=== PATIENT | male | born 1940 | race Caucasian/White ===

== ENCOUNTER → 2018-01-10 14:06 | Outpatient (CLI) | payer OTHER, SELFPAY ==
[2018-01-10 15:50] LABS: Anion Gap 9 (5-15); BUN 18 mg/dL (7-18); Calcium,Total 9.5 mg/dL (8.5-10.1); Chloride 101 mmol/L (98-107); Cholesterol 262 mg/dL (200); Creatinine, Serum 1.06 mg/dL (0.70-1.30); EST Glomerular Filtration Rate 72 mL/min (>60); Est Glom Filt Rate - Afr Amer 87 mL/min (>60); Glucose 111 mg/dL (74-106); High Density Lipoprotein 39 mg/dL; Potassium 4.2 mmol/L (3.5-5.1); Sodium Level 135 mmol/L (136-145); Triglycerides 309 mg/dL; Very Low Density Lipoprotein 62 mg/dL (5-40)
== END ==
PROVIDERS: Family Provider Family Medicine; PCP Family Medicine; Visit Provider Family Medicine
DX: I10 Essential (primary) hypertension (principal)
CPT/HCPCS: 36415; 80048; 80061

== ENCOUNTER 2021-05-10 08:54 | Inpatient (IN) | payer MEDICARE, SELFPAY ==
[2021-05-10 08:55] VITALS: BP 172/86; PULSE 84; RESP 18; TEMP 36.3; O2SAT 99; BMI 25.9
--- NOTE | 2021-05-10 09:58 | RAD_ITS ---
STUDY: X-RAY - PELVIS AND LEFT HIP REASON FOR EXAM: Male, 80 years old. Injury/Pain TECHNIQUE: 3 views of the pelvis and hip. COMPARISON: None. FINDINGS: There is a non-specific bowel gas pattern. Normal visualized soft tissue structures. Normal bilateral iliac wings, sacroiliac joints and visualized sacrum. Normal bilateral superior and inferior pubic rami. Normal pubic symphysis. Normal bilateral ischial tuberosities. Acute impacted fracture of the transcervical femoral neck. Normal acetabulum. Normal hip joint. RAD/HIP, UNI W/ Pelvis 2-3 Views IMPRESSION: Acute impacted fracture the transcervical femoral neck. Electronically Signed: Kevin Flood MD at 10:46 EST ,
[2021-05-10] MEDS: Morphine 4 MG/ML Syringe IV (10:14)
--- NOTE | 2021-05-10 10:29 | RAD_ITS ---
STUDY: X-RAY CHEST REASON FOR EXAM: Male, 80 years old. surgery TECHNIQUE: Single AP portable view of the chest. COMPARISON: None. FINDINGS: The lungs are clear and expanded. Slightly elevated right hemidiaphragm. Normal size heart. Normal mediastinum and asim. Normal visualized pulmonary arteries. Normal visualized aortic arch and descending thoracic aorta. Normal visualized thoracic spine. Normal visualized ribs, clavicles, and shoulders. There is no demonstrated abnormality of the visualized soft tissue structures of the upper abdomen. RAD/Chest 1 View IMPRESSION: Normal x-ray examination of the chest. Electronically Signed: Kevin Flood MD at 10:52 EST ,
--- NOTE | 2021-05-10 10:33 | EX.ED.GENINJ ---
HPI History of Present Illness Chief Complaint: Fall Informant: patient and spouse/S.O. Narrative Narrative: Patient is an 80-year-old male presenting with left hip pain. Patient slipped on the ice yesterday yesterday. Is not exactly sure how he landed but feels that he has had pain in his groin since. He was only able to get up with assistance from two other people. He has had a hard time getting around the house since his been using crutches. His company did not not hit his head and did not lose consciousness. Is not on any blood thinners. wanted to bring him in yesterday but patient refused. Patient took two ibuprofen prior to arrival. No other complaints at this time. Patient does have a history of a large left inguinal hernia but denies any change there. Never had surgical repair. [facility] Medical History Hernia HTN (hypertension) Home Medications NK 05/10/21 [History Last Taken Unknown] Allergy/AdvReac Type Severity Reaction Status Date / Time No Known Allergies Allergy Unverified 05/10/21 08:55 Family History Father Myocardial infarction Social History Smoking Status: Never smoker alcohol intake: current alcohol intake frequency: a few times a week Alcohol type: beer ROS ROS ED Constitutional Constitutional ED: Denies chills or fever(s) Eyes Eyes: Denies change in vision ENT ENT ED: Denies sore throat Cardiovascular Cardiovascular: Denies chest pain Respiratory/Chest Respiratory/Chest: Denies cough or dyspnea Gastrointestinal Gastrointestinal: Denies abdominal pain, nausea or vomiting Genitourinary Genitourinary ED: Denies dysuria or hematuria Musculoskeletal Musculoskeletal: Reports other Details: left hip pain Integumentary Denies abscess or rash Neurologic Neurologic: Denies headache(s), paresthesias or weakness Psychiatric Psychiatric: Denies depression EXAM Physical Exam Const Vital Signs: 05/10/21 08:55 05/10/21 09:04 05/10/21 10:56 Temperature 97.3 F L 98.4 F Temperature Source Temporal Oral Pulse Rate 84 75 Respiratory Rate 18 16 Respiratory Effort Normal Respiratory Depth Normal Respiratory Pattern Normal Blood Pressure 172/86 H 171/94 H Blood Pressure Mean 114 119 Pulse Ox 99 97 Oxygen Delivery Method Room Air Room Air Positive well nourished and well developed General Appearance ED: well developed HEENT atraumatic; Negative for trauma or tenderness Eyes PERRL and EOMs intact bilaterally Neck full ROM General: Negative for tenderness Chest Wall inspection of chest normal Resp normal respiratory effort and clear to auscultation bilaterally Cardio regular rhythm and no murmurs Rate: regular rate GI normal to inspection, nondistended, normoactive bowel sounds Narrative: Large, soft left inguinal hernia. No tenderness. No abnormal warmth or erythema. Extremity Extremity Narrative: Tenderness of the left groin. Left lower extremity shortened and externally rotated. Pain with range of motion of the left hip. Pelvis is stable. General Extremety ED: Yes tenderness Neuro oriented x3, CN's II-XII intact bilaterally, moves all extremities and no focal motor deficits Sensorium / Orientation: alert Psych mental status grossly normal Skin no rashes or lesions noted and no wounds MDM MDM MDM Narrative Medical decision making narrative: Patient evaluated for left hip/groin pain. He had a fall yesterday. Did not hit his head. Is not on any blood thinners. Is found to have a left hip fracture. Will be admitted to medicine service for surgical management. Case discussed with Dr. Braydon Herr. Is given morphine for pain control in the ER. Patient admitted to hospital service. EKG interpreted by emergency medicine physician Normal sinus rhythm at a rate of 75 Left axis Normal intervals Normal ST segments Telemetry interpreted by emergency medicine physician Normal sinus rhythm with no ectopy Lab Data Labs: Laboratory Results - last 24 hr 05/10/21 05/10/21 05/10/21 10:55 10:55 10:55 WBC 11.2 H RBC 5.08 Hgb 15.1 Hct 44.6 MCV 87.8 MCH 29.7 MCHC 33.9 RDW Std Deviation 43.6 RDW Coeff of Ana 13.5 Plt Count 192 MPV 10.3 Immature Gran % (Auto) 0.600 Neut % (Auto) 80.9 H Lymph % (Auto) 8.5 L [place] % (Auto) 9.4 Eos % (Auto) 0.4 Baso % (Auto) 0.2 Absolute Neuts (auto) 9.1 H Absolute Lymphs (auto) 0.95 Nucleated RBC % 0 PT 14.2 INR 1.2 Sodium 139 Potassium 4.1 Chloride 107 Carbon Dioxide 25.0 Anion Gap 7 BUN 18 Creatinine 0.86 Estim Creat Clear Calc 75.19 Est GFR (MDRD) Af Amer 110 Est GFR (MDRD) Non-Af 91 BUN/Creatinine Ratio 21.0 H Glucose 126 H Calcium 9.0 Blood Type Antibody Screen 05/10/21 10:55 WBC RBC Hgb Hct MCV MCH MCHC RDW Std Deviation RDW Coeff of Ana Plt Count MPV Immature Gran % (Auto) Neut % (Auto) Lymph % (Auto) [place] % (Auto) Eos % (Auto) Baso % (Auto) Absolute Neuts (auto) Absolute Lymphs (auto) Nucleated RBC % PT INR Sodium Potassium Chloride Carbon Dioxide Anion Gap BUN Creatinine Estim Creat Clear Calc Est GFR (MDRD) Af Amer Est GFR (MDRD) Non-Af BUN/Creatinine Ratio Glucose Calcium Blood Type B POSITIVE Antibody Screen NEGATIVE Radiography Diagnostic Testing: Clinical Impression(s) from Imaging Studies Hip/Pelvis X-Ray 05/10/21 09:58 IMPRESSION: Acute impacted fracture the transcervical femoral neck. Electronically Signed: Kevin Flood MD at 10:46 EST Reading Location ID and State: [id number] / [employer] Tel , Service support , Chest X-Ray 05/10/21 10:29 IMPRESSION: Normal x-ray examination of the chest. Electronically Signed: Kevin Flood MD at 10:52 EST , Discharge Plan Dx/Rx/DC Orders Clinical Impression: Femoral neck fracture Disposition Disposition: Acute Care Hospital [facility] Discharge Date/Time: 05/10/21 11:30
--- NOTE | 2021-05-10 10:49 | EKG12_ITS ---
Test Reason : PRE-OP Blood Pressure : / mmHG Vent. Rate : 075 BPM Atrial Rate : 075 BPM P-R Int : 132 ms QRS Dur : 090 ms QT Int : 398 ms P-R-T Axes : 038 -56 042 degrees QTc Int : 444 ms Normal sinus rhythm Left axis deviation Low voltage QRS (Limb Leads) Poor R wave progression Abnormal ECG Confirmed by RUBY PEREZ, TANNA ([id number]), restaurant expeditor SHAMIKA TOMLIN ([id number]) on 05/13/2021 12:53:02 PM Referred By: [place] Confirmed By:TANNA BELTRAN MD
[2021-05-10 10:56] VITALS: BP 171/94; PULSE 75; RESP 16; TEMP 36.9; O2SAT 97
--- NOTE | 2021-05-10 11:09 | PCM.HP.STD ---
HPI - General General Date of Admission: 05/10/21 HPI Narrative TANNA RODRIGUEZ, is a 80 M who presents with left hip pain. Patient slipped on ice yesterday and landed on his left hip. Patient having pain. Presented to the emergency room and was found to have an acute impacted fracture of the left transcervical femoral neck. Emergency room reached out to Dr. Herr, orthopedics, left message as he is currently in surgery. [facility] Medical History Hernia HTN (hypertension) Home Medications NK 05/10/21 [History Last Taken Unknown] Allergy/AdvReac Type Severity Reaction Status Date / Time No Known Allergies Allergy Unverified 05/10/21 08:55 Family History Father Myocardial infarction Social History Smoking Status: Never smoker alcohol intake: current alcohol intake frequency: a few times a week Alcohol type: beer ROS ROS Narrative All review of systems were negative except as mentioned above in the history of present illness and the other review of systems. Vital Signs Vital Signs Vital Signs: 05/10/21 08:55 05/10/21 09:04 05/10/21 10:56 Temperature 36.3 C L 36.9 C Temperature Source Temporal Oral Pulse Rate 84 75 Respiratory Rate 18 16 Respiratory Effort Normal Respiratory Depth Normal Respiratory Pattern Normal Blood Pressure 172/86 H 171/94 H Blood Pressure Mean 114 119 Pulse Ox 99 97 Oxygen Delivery Method Room Air Room Air Weight Weight: 87 kg Body Mass Index (BMI) 25.9 Physical Exam Const alert General Appearance: cooperative HEENT normocephalic and head/scalp atraumatic Neck no lymphadenopathy Resp normal respiratory effort, no retractions, no use of accessory muscles and clear to auscultation bilaterally Cardio regular rate, regular rhythm, S1 normal heart sound and S2 normal heart sound GI normal to inspection, nondistended, normoactive bowel sounds, soft to palpation, non-tender and non-distended GI Narrative: Left inguinal hernia Extremity full ROM Extremity Narrative: Shortened left lower extremity compared to the right. Neuro Neuro Narrative: Moves all extremities spontaneously Sensorium / Orientation: awake and alert Psych affect normal Results Lab / Micro Data Result Diagrams: 05/10/21 10:55 05/10/21 10:55 Radiology Impression Hip/Pelvis X-Ray 05/10/21 09:58 IMPRESSION: Acute impacted fracture the transcervical femoral neck. Electronically Signed: Kevin Flood MD at 10:46 EST Reading Location ID and State: [facility] / [place] Tel , Service support , Chest X-Ray 05/10/21 10:29 IMPRESSION: Normal x-ray examination of the chest. Electronically Signed: Kevin Flood MD at 10:52 EST , Assessment & Plan Assessment/Plan (1) Femoral neck fracture: QUALIFIERS: Encounter type: initial encounter Fracture type: closed Laterality: left Qualified Code(s): S72.002A - Fracture of unspecified part of neck of left femur, initial encounter for closed fracture PLAN: 1. Left femoral neck fracture s/p mechanical fall Bedrest childers catheter Ortho consult check 25 OH d level NQ SIP performed and patient is slightly a higher risk for UTI and discharged to nursing facility. Patient, despite his age has a very good performance status. Patient is otherwise medically optimized proceed with surgery. EKG has been ordered and will review. Barring any gross abnormality, patient would be medically cleared to proceed with surgery. 2. Hypertension Does not take any medicine at home Monitor may be temporarily elevated due to current distress 3. VTE prophylaxis with SCDs 4. COVID-19 vaccine declined: Patient states that he takes vinegar as a remedy for all his ails. He went to expound upon my takes vinegar and I was told him I was not interested on his take with vinegar and COVID-19. 5. CODE STATUS: Addressed with the patient. Patient wished to be full CODE STATUS. Charges/Coding Visit Charges Inpatient E&M: 43970 Init Hosp L2
[2021-05-10 11:12] LABS: Absolute Lymphocyte Count 0.95 X10^3/uL (0.83-4.51); Absolute Neutrophil Count 9.1 X10^3/uL (2.0-7.7); Basophil# 0.02 X10^3/uL; Basophil% 0.2 % (0-1); Eosinophil# 0.05 X10^3/uL; Eosinophils% 0.4 % (0-5); Hematocrit 44.6 % (40-54); Hemoglobin 15.1 g/dL (13.0-16.5); Lymphocyte # 0.95 X10^3/ul (0.83-4.51); Lymphocyte % 8.5 % (19-41); Mean Corp Hgb Conc 33.9 g/dL (32-36); Mean Corpuscular Hgb 29.7 pg (27.0-32.0); Mean Corpuscular Volume 87.8 fL (80-94); Mean Platelet Vol. 10.3 fl (6.2-12.0); Monocyte# 1.05 X10^3/uL; Monocyte% 9.4 % (0-10); NRBC Flagged by Analyzer 0 % (0-5); Neutrophil # 9.07 X10^3/uL (2.7-7.7); Neutrophil % 80.9 % (47-70); Platelet Count 192 K/mm3 (150-450); RBC Distribution Width CV 13.5 % (11.6-14.6); RBC Distribution Width SD 43.6 fl (35.1-43.9); Red Blood Count 5.08 M/mm3 (4.6-6.2); White Blood Count 11.2 K/mm3 (4.4-11.0)
[2021-05-10 11:22] LABS: Anion Gap 7 (5-15); BUN 18 mg/dL (7-18); Chloride 107 mmol/L (98-107); Creatinine, Serum 0.86 mg/dL (0.70-1.30); EST Glomerular Filtration Rate 91 mL/min (>60); Est Glom Filt Rate - Afr Amer 110 mL/min (>60); Estimated Creatinine Clearance 75.19 ml/min; Glucose 126 mg/dL (74-106); Potassium 4.1 mmol/L (3.5-5.1); Sodium Level 139 mmol/L (136-145)
--- NOTE | 2021-05-10 11:24 | ED.RN ---
ONE ATTEMPT TO PLACE YANG CATHETER, UNABLE TO ADVANCE CATHETER PAST TIP OF PENIS. DR. DO INFORMED.
[2021-05-10 11:35] VITALS: RESP 18; BMI 25.9
[2021-05-10 11:37] VITALS: BP 186/99; PULSE 75; RESP 18; TEMP 36.8; O2SAT 98
[2021-05-10 11:43] LABS: International Normalized Ratio 1.2; Prothrombin Time (Protime)PT. 14.2 SECONDS (11.7-14.9)
[2021-05-10] MEDS: oxyCODONE 5 MG Tablet PO ×2 (13:22→23:18)
[2021-05-10] MEDS: amLODIPine 5 MG Tablet PO (13:23)
[2021-05-10 14:18] VITALS: BP 136/82; PULSE 80; RESP 18; TEMP 37.1; O2SAT 98
[2021-05-10] MEDS: oxyCODONE 5 MG Tablet 10 MG PO (18:02)
[2021-05-10 20:00] VITALS: BP 155/89; PULSE 89; RESP 12; TEMP 37.2; O2SAT 96
[2021-05-10] MEDS: 0.9% Saline Lock 10 ML Syringe IV (23:20)
[2021-05-10] MEDS: 0.9% Normal Saline 1,000 ML 125 ML IV (23:21)
[2021-05-11] VITALS (12 sets, daily range): BP systolic 91–168; BP diastolic 53–111; PULSE 77–124; RESP 14–18; TEMP 36.6–37.3; O2SAT 85–98; BMI 25.9
--- NOTE | 2021-05-11 07:23 | PCM.PN.HOSP ---
Subjective Subjective Patient is an 80-year-old gentleman admitted following a fall. Imaging studies obtained demonstrated left femoral neck fracture Objective Data Objective Data Vital Signs: Vital Signs Temp Pulse Resp BP Pulse Ox 99.1 F 92 14 152/84 H 93 05/11/21 02:21 05/11/21 02:21 05/11/21 02:21 05/11/21 02:21 05/11/21 02:21 Oxygen Delivery Method Room Air Weight: 87 kg Body Mass Index (BMI) 25.9 Intake & Output: Intake and Output for Last 24 Hours 05/09/21 05/10/21 05/11/21 23:59 23:59 23:59 Intake Total 750 / 750 Output Total 250 / 600 700 / 700 Balance 500 / 150 -700 / -700 Lab / Micro Data Result Diagrams: 05/10/21 10:55 05/10/21 10:55 Labs: Laboratory Results - last 24 hr 05/10/21 10:55: WBC 11.2 H, RBC 5.08, Hgb 15.1, Hct 44.6, MCV 87.8, MCH 29.7, MCHC 33.9, RDW Std Deviation 43.6, RDW Coeff of Ana 13.5, Plt Count 192, MPV 10.3, Immature Gran % (Auto) 0.600, Neut % (Auto) 80.9 H, Lymph % (Auto) 8.5 L, [place] % (Auto) 9.4, Eos % (Auto) 0.4, Baso % (Auto) 0.2, Absolute Neuts (auto) 9.1 H, Absolute Lymphs (auto) 0.95, Nucleated RBC % 0 05/10/21 10:55: PT 14.2, INR 1.2 05/10/21 10:55: Sodium 139, Potassium 4.1, Chloride 107, Carbon Dioxide 25.0, Anion Gap 7, BUN 18, Creatinine 0.86, Estim Creat Clear Calc 75.19, Est GFR (MDRD) Af Amer 110, Est GFR (MDRD) Non-Af 91, BUN/Creatinine Ratio 21.0 H, Glucose 126 H, Calcium 9.0 05/10/21 10:55: Blood Type B POSITIVE, Antibody Screen NEGATIVE Micro: Microbiology 05/10/21 11:00 Interface Orders SARS-CoV-2 Antigen (Rapid) - Final Radiography Diagnostic Testing: Radiology Impression Hip/Pelvis X-Ray 05/10/21 09:58 IMPRESSION: Acute impacted fracture the transcervical femoral neck. Electronically Signed: Kevin Flood MD at 10:46 EST Reading Location ID and State: [facility] / [place] Tel , Service support , Chest X-Ray 05/10/21 10:29 IMPRESSION: Normal x-ray examination of the chest. Electronically Signed: Kevin Flood MD at 10:52 EST , Physical Exam Narrative GENERAL: cooperative HEENT: Atraumatic; EYES; Anicteric, Normal Conjunctiva NECK; supple, normal thyroid, RESPIRATORY: Diminished to auscultation CARDIOVASCULAR: Regular S1 S2, GI: soft, normoactive bowel sounds, : No Renal angle tenderness; EXTREMITIES: No edema, no clubbing, MUSCULOSKELETAL: Left lower extremity externally rotated NEURO: Awake; no lateralizing signs. SKIN: No Rash PSYCH; Flat affect Assessment & Plan Assessment/Plan (1) Femoral neck fracture: QUALIFIERS: Encounter type: initial encounter Fracture type: closed Laterality: left Qualified Code(s): S72.002A - Fracture of unspecified part of neck of left femur, initial encounter for closed fracture PLAN: Patient is an 80-year-old gentleman admitted following a fall. Imaging studies obtained demonstrated left femoral neck fracture 1. Left femoral neck fracture ?Admitted to regular nursing floor managed with immobilization pain management consult placed to Ortho plan is for patient to undergo surgical intervention on 05/11/2021 Patient PREOP assessment as documented by admitting physician 2. Essential hypertension ?Currently not on any medication 3. DVT prophylaxis ?SCDs for now with plans to initiate chemoprophylaxis following patient surgical intervention Charges/Coding Visit Charges Inpatient E&M: 52989 Subs Hosp L2
[2021-05-11] MEDS: 0.9% Normal Saline 1,000 ML 125 ML IV ×2 (07:35→19:12)
--- NOTE | 2021-05-11 10:25 | CASEMGMT ---
CHANTAL JESUS Assessment: Face to Face with pt for initial transition planning/care coordination assessment. CHANTAL JESUS introduced self and role at [facility], pt voices understanding and consents to assessment. Pt is A/O x4 and answers all questions appropriately at this time. Pt lying in bed in no distress with at bedside. Care providers, pharmacy, and demographics verified/updated. Admitting Dx: hip fx PCP: [facility] Specialists: Pt denies having any specialists. Preferred Pharmacy: [facility] Insurance: [employer] [facility] Prescription Benefit: yes LW/HPOA: Pt thinks they have a LW/DPOA and she believes she is pt DPOA. She will call petroleum supply specialist today to verify. They are aware it is not on file at [facility] and they may bring in to be scanned into the pt chart. LNOK: Ernestina Daniel, Living Arrangements: Pt lives with in a two story house with no steps to enter if go through the basement, although there would be 12 steps to get to the main floor. Pt states they have a bedroom and bathroom on the main and second story of the house. Pt reports he was I in ADL's and denies concerns at home prior to the fall. Transportation: Pt drives self and denies concerns with transportation. is able to transport pt to medical appts while he is unable to drive. DME/HHC/SNF: Pt does not typically use any AD. He states that pt mother has recently passed and they have access to a walker, w/c, cane and lift chair. Pt denies hx of HHC or SNF stays. Pt to have surgery today. Pt would ultimately like to return home after surgery. is in agreement with this and she is the pt designated person to discuss dc planning with. They are both aware we will see how pt does with therapy and recommendations. Pt states no further concerns/needs. CM to follow. Advised pt to ask CM if any further question/concerns/needs arise, voices understanding. Pt Goal: Return home Plan: TBD pending surgery and post op course.
--- NOTE | 2021-05-11 12:30 | NURSING ---
to surgery via bed
[2021-05-11] MEDS: Lactated Ringers 1,000 ML 15 ML IV ×2 (13:00→16:00)
--- NOTE | 2021-05-11 13:00 | CASEMGMT ---
Social Work Note SW updated that pt's mentioned pt possibly going to TCU at discharge. SW placed a call to Peggy with TCU and provided referral. Plan: [address] TEST EXAMINER, PHARMACEUTICAL SPECIALTY REPRESENTATIVE
--- NOTE | 2021-05-11 13:30 | FEM_PTH ---
PATIENT: TANNA RODRIGUEZ LOC: [facility] U#:[id number] AGE/SX: 80/M [place] [facility]: Dr. Ishaan Ferris MD : 1940 BED: 1 DIS: 05/13/2021 SPEC #: [id number] RECD: 05/12/21 08:22 STATUS: TAO REQ #: [id number] VISHNU: 05/11/21 13:[address]: Braydon Herr DEPT: SURGICAL PATHOLOGY RECD BY: Krystal Bravo ENTERED: 05/12/21 08:44 SP TYPE: FEM HEAD OTHR DR: MD Dr. Ishaan Babb MD Dr. Eric Jopperi, DO Dr. Rodney Miller, MD Tissues: Femoral region, NOS Procedures: Decalcification bone/plaque Surgery Specimen Level V Comments: @ Ordering doctor for DEC edited from to [email or web address] Aquino by OLESYA at 05/12/21 1406 @ Ordering doctor for SUV edited from to DR.[email or web address] Aquino by OLESYA at 05/12/21 1406 @ Submitting doctor edited from to DR.[email or web address] Aquino by OLESYA at 05/12/21 1406 HEADER OPERATION: Left hip hemiarthroplasty, cemented PRE-OP DIAGNOSIS: Left femoral neck fracture TISSUE SUBMITTED: Left femoral head MICROSCOPIC DIAGNOSIS Left femoral head, fracture: Consistent with organizing fracture callus. AM:vincent 05/15/2021 MICROSCOPIC DESCRIPTION Slides are reviewed. GROSS DESCRIPTION Received in fixative is one container labeled with the patient's name and designated left femoral head. The specimen consists of a femoral head measuring 4.5 x 4.5 x 4 cm. The articular surface is smooth. Resection margin is irregular and hemorrhagic. Also present in the specimen container are multiple detached pieces of bone measuring in aggregate 6 x 6 x 2 cm. [employer] Sales [employer] sections are submitted in three cassettes after decalcification as follows: 1 & 2 - detached pieces of bone, 3 - femoral head. / SJ:vincent 05/12/2021 TC: CPT: 62051, 59857
--- NOTE | 2021-05-11 14:39 | PCM.CONS.GEN ---
Assessment & Plan Assessment/Plan (1) Femoral neck fracture: QUALIFIERS: Encounter type: initial encounter Fracture type: closed Laterality: left Qualified Code(s): S72.002A - Fracture of unspecified part of neck of left femur, initial encounter for closed fracture PLAN: X-rays of left hip and pelvis taken at [facility] yesterday discussed and reviewed at length with the patient his and Dr. Braydon Herr. Consistent with displaced impacted left femoral neck fracture without significant degenerative changes noted Assessment/plan Displaced left femoral neck fracture Dr. Braydon Herr did discuss and review at length with patient all treatment options including surgical and nonsurgical treatment options. At this time they do wish to proceed with a left hip cemented hemiarthroplasty potential risk benefits and complications of this procedure were discussed and reviewed at length including but not limited to infection nerve and blood vessel damage persistent pain numbness tingling paresthesias blood clot pulmonary believes him and requirement for possible further surgery patient and his voiced understanding agreed to the above-stated procedure and have signed the appropriate surgery consent form. All of their questions were answered. The potential risks associated with the COVID-19 virus were discussed and reviewed at length with them vaccination was discussed reviewed and recommended. They voiced understanding. HPI Consult Data Date of Consult: 05/11/21 HPI Narrative HPI Narrative: TANNA RODRIGUEZ, is a 80 M who presented to [facility] yesterday secondary to a fall. He lives at home with his . They were going with friends out to lunch he slipped on ice twisted his left hip had increased pain. There was no pain in his hip prior to the injury. No head injury or loss of consciousness. He made it back into the house and had significant increased pain. He was taken to the emergency department. X-rays revealed a femoral neck fracture. Orthopedics was consulted. He currently denies pain in the knee foot or ankle on that side. No numbness or tingling into the leg. No fevers chills or other signs of infection. [facility] Medical History Hernia HTN (hypertension) Home Medications NK 05/10/21 [History Last Taken Unknown] Allergy/AdvReac Type Severity Reaction Status Date / Time No Known Allergies Allergy Unverified 05/10/21 08:55 Family History Father Myocardial infarction Social History Smoking Status: Never smoker alcohol intake: current alcohol intake frequency: a few times a week Alcohol type: beer ROS ROS Narrative 12 review of systems were discussed and personally reviewed with the patient at length. Pertinent positives and negatives are documented within the electronic medical record Physical Exam Narrative Patient was evaluated with his at bedside. He is alert and oriented x3. No acute distress at rest. Breathing easily without respiratory distress. He is lying supine in hospital bed with the left limb shortened and externally rotated. Left hip mobility was deferred due to hip fracture. No pain in the knee. No calf pain or swelling bilaterally. Patient able to actively plantar and dorsiflex bilateral ankles against gravity. Sensation intact to light touch pedal pulses present and equal bilaterally. Neurovascularly intact. Lab / Micro Data Result Diagrams: 05/10/21 10:55 05/10/21 10:55 Labs: Laboratory Results - last 24 hr 05/11/21 06:15: Vitamin D 25-Hydroxy 25.0 Micro: Microbiology 05/10/21 11:00 Interface Orders SARS-CoV-2 Antigen (Rapid) - Final
[2021-05-11] MEDS: Cefazolin 2 GM in 0.9% Normal Saline 100 ML IV (15:01)
[2021-05-11] MEDS: TXA 1000mg in NS100 100ml (IVPB at Incision) 660 MG IV (15:28)
[2021-05-11] MEDS: TXA 1000mg in NS100 100ml (IVPB at Closure) 660 MG IV (16:23)
--- NOTE | 2021-05-11 16:31 | PCM.OP.BLANK ---
Problems Associated Problem List Diagnoses (1) Femoral neck fracture: Operative Report Date of Procedure: 05/11/21 Preoperative diagnosis: Left hip displaced femoral neck fracture Postoperative diagnosis: Same Operation: Left hip cemented hemiarthroplasty Surgeon: Dr. Braydon Herr MD Soda Worker: Sherly Montalvo PA-C Anesthesia: General Anesthesiologist; Dr. Velez ebl: 250 FLUID IN 1400 SPECIMEN : BONE Special medications: IV [Ancef 2 gm, IV Tranexamic acid IV x2 Indications for surgery : Patient is a (80) -year-old that fell yesterday fracturing the involved hip. Appropriate informed consent was obtained and signed. Appropriate medical workup was performed preoperatively and patient was deemed safe for surgery by the anesthesia department retail assistant store manager, LUCIANA was utilized throughout the entire procedure. They were vital in helping with patient positioning, holding of retractors, exposing the tissues adequately for safe completion of the procedure including cutting of the bone, helping sheet rocker appropriate alignment and sizing of the components, implantation of the components, as well as wound closure, bandage application, and safe patient transfer. Without podiatric assistant, physician judicial administrative assistant, surgical time would have been significantly increased, and surgical outcome would have been less optimal. Operative findings: Patient had displaced comminuted femoral neck fracture. We used a Pratt accolade C stem size #6 cemented. Bipolar 50 mm femoral head OD, 26 mm ID, with a +0 neck length. This reproduced there anatomy nicely. Clinically good leg lengths were noted. Good hip stability through range of motion with no undue pistoning. Standard wound closure in layers, followed by bakari, followed by Mepilex dressing Details of procedure: Patient was taken to the operating room and transferred to the operating table. Given appropriate anesthetic agent by that department. Patient was then rolled into a lateral decubitus position with the involved painful hip up in the air. Appropriate timeouts had been performed. Hip had been appropriately marked with my initials. Padded anterior and posterior position was utilized. Axillary roll placed. CÉSAR hose and SCDs on the nonoperative limb utilized throughout the procedure. Operative lower extremity was prepped padded and draped in the usual orthopedic sterile fashion for the procedure. I injected the pain relieving solution in the standard sterile technique of the soft tissues of the hip carefully. Incision was made curving over the tip of the greater trochanter posteriorly. Full thickness skin flaps are raised down on the fascia anamaria. Fascia anamaria was opened in length with our incision. Charnley self-retaining hip retractor was carefully placed by the surgeon. Leg was appropriately rotated by the judicial administrative assistant. Retractor was used to lift the abductors anteriorly to visualize the piriformis tendon and external rotators. Piriformis tendon and external rotators released off the greater trochanter with the Bovie. Tagging suture was placed in each of these separately. We then split the tissue superior to the piriformis tendon through capsule and onto the pelvis. Acetabular labrum was preserved. Retractors were carefully placed around the femoral neck. Displaced unstable femoral neck fracture identified. cutting guide was utilized to map out the proposed cut approximately 1 fingerbreadth above the lesser trochanter. This femoral neck cut was carried out with a saw. Fractured femoral head removed from the acetabulum and measured and inspected. Appropriate trial was utilized. A proximal femoral elevator utilized. We used a sharp awl entering down inside the bone of the proximal femur. Utilized the [employer] cutting osteotome the proximal lateral greater trochanteric region. The fragment removed. Broaching was then done from the smallest broach, upto the appropriate size. Good stability was confirmed. We then trialed the construct with a standard neck length and appropriate sized femoral head. We were happy with the construct. Good stability to flexion, rotation. At this point trials removed. 2 full batches of tobramycin ATB bone cement were mixed. 2 sponges were placed in the acetabulum we prepared the canal with brushing. Cement restrictor was placed down to the appropriate depth. It was thoroughly irrigated clean and dry. When the cement was as the appropriate texture, we pressurized cement down in the femoral canal. The appropriate size stem then hammered into the proximal femur and seated down to a similar position as the trial had. Excess bone cement removed. Stem was held still while cement fully hardened. Pain relieving solution was injected while this was occurring. The cement was fully hardened, sponges were removed from the acetabulum. We now again trialed and appropriate neck length decided upon. It was then opened. Now impacted the appropriate sized femoral head, neck construct onto the clean dried trunion. Was noted to be stable. Hip was inspected, and joint was reduced for a final time. Good hip stability and leg lengths noted. This was then irrigated with sterine betadine, irrisept, and saline and cleaned. Next the remainder of the pain relieving solution was injected carefully throughout the soft tissues of the hip joint. Closure was carried out with a combination of #1 Vicryl repairing the hip capsule as well as piriformis tendon and external rotators to bone, running #2 strata fix in the fascia anamaria, followed by mid layer #1 Vicryl with #1 strata fix running. Next running 0 strata fix, followed by skin bakari, Xeroform, Mepilex dressing. We placed CÉSAR hose and SCD on the operative leg. Patient awoken from the anesthetic and transferred back to room bed in recovery room in satisfactory condition. Patient will be admitted to the hospital. Hospitalist service will continue to manage the medical issues. Hopeful discharge to home or ECF in 1-2 days. This note was generated with [employer] dictation software. It may contain incorrect words, spelling, and punctuation that were not noted in checking the note before signing.
--- NOTE | 2021-05-11 17:10 | RAD_ITS ---
STUDY: X-RAY - PELVIS AND LEFT HIP REASON FOR EXAM: Male, 80 years old. Post Op -- AP both hips on single liam/lateral of op hip PACU TECHNIQUE: 2 views of the pelvis and hip. COMPARISON: Pelvic x-ray dated May 10, 2021 FINDINGS: Status post surgical resection of the left femoral head and neck. The proximal one third femoral prosthetic component is well placed within the intramedullary cavity as well as the acetabular cup. Both prosthetic components demonstrate good bony contact and alignment. Expected postoperative changes of the overlying soft tissues including gas and swelling. Surgical bakari are also present. A large left inguinal hernia is present containing bowel loops. RAD/Hip Min 2 Views (Portable) IMPRESSION: Status post left hip arthroplasty. Electronically Signed: Mario Coronado MD at 18:27 EST ,
[2021-05-11] MEDS: Cefazolin 1 GM/50 ML BAG IV (22:49)
[2021-05-11] MEDS: Aspirin 81 MG TAB.CHEW PO (22:49)
[2021-05-11] MEDS: Senna/Docusate Sodium 1 Tablet 2 TABLET PO (22:49)
[2021-05-11] MEDS: amLODIPine 5 MG Tablet PO (23:00)
[2021-05-12 02:13] VITALS: BP 149/81; PULSE 111; RESP 20; TEMP 36.9; O2SAT 95
[2021-05-12 05:42] LABS: Absolute Lymphocyte Count 0.67 X10^3/uL (0.83-4.51); Absolute Neutrophil Count 9.5 X10^3/uL (2.0-7.7); Basophil# 0.01 X10^3/uL; Basophil% 0.1 % (0-1); Eosinophil# 0.01 X10^3/uL; Eosinophils% 0.1 % (0-5); Hematocrit 37.3 % (40-54); Hemoglobin 12.8 g/dL (13.0-16.5); Lymphocyte # 0.67 X10^3/ul (0.83-4.51); Mean Corp Hgb Conc 34.3 g/dL (32-36); Mean Corpuscular Hgb 29.8 pg (27.0-32.0); Mean Corpuscular Volume 86.7 fL (80-94); Monocyte# 0.87 X10^3/uL; Monocyte% 7.8 % (0-10); NRBC Flagged by Analyzer 0 % (0-5); Neutrophil # 9.49 X10^3/uL (2.7-7.7); Neutrophil % 85.4 % (47-70); Platelet Count 133 K/mm3 (150-450); RBC Distribution Width CV 13.4 % (11.6-14.6); RBC Distribution Width SD 42.6 fl (35.1-43.9); White Blood Count 11.1 K/mm3 (4.4-11.0)
[2021-05-12] MEDS: Cefazolin 1 GM/50 ML BAG IV (06:02)
[2021-05-12 06:06] LABS: Anion Gap 8 (5-15); BUN 16 mg/dL (7-18); BUN/Creat Ratio 17.1 RATIO (10-20); Calcium,Total 8.4 mg/dL (8.5-10.1); Chloride 107 mmol/L (98-107); Creatinine, Serum 0.94 mg/dL (0.70-1.30); EST Glomerular Filtration Rate 83 mL/min (>60); Est Glom Filt Rate - Afr Amer 100 mL/min (>60); Estimated Creatinine Clearance 68.79 ml/min; Glucose 164 mg/dL (74-106); Potassium 3.9 mmol/L (3.5-5.1); Sodium Level 137 mmol/L (136-145)
[2021-05-12 06:11] VITALS: BP 120/69; PULSE 88; RESP 18; TEMP 37; O2SAT 96
--- NOTE | 2021-05-12 07:33 | PN.HOSP_ITS ---
Subjective Subjective Postoperative day 1 following Left hip cemented hemiarthroplasty on 05/11/2021. Patient seen pain is controlled. Plan for patient to undergo physical therapy this a.m. Objective Data Objective Data Vital Signs: Vital Signs Temp Pulse Resp BP Pulse Ox 98.6 F 88 18 120/69 96 05/12/21 06:11 05/12/21 06:11 05/12/21 06:11 05/12/21 06:11 05/12/21 06:11 Oxygen Flow Rate (L/min) 3 Oxygen Delivery Method Room Air Weight: 87 kg Body Mass Index (BMI) 25.9 Intake & Output: Intake and Output for Last 24 Hours 05/10/21 05/11/21 05/12/21 23:59 23:59 23:59 Intake Total 750 / 750 3380 / 3680 2150 / 2150 Output Total 250 / 600 900 / 900 300 / 300 Balance 500 / 150 2480 / 2780 1850 / 1850 Lab / Micro Data Result Diagrams: 05/12/21 05:33 05/12/21 05:33 Labs: Laboratory Results - last 24 hr 05/11/21 06:15: Vitamin D 25-Hydroxy 25.0 05/12/21 05:33: WBC 11.1 H, RBC 4.30 L, Hgb 12.8 L, Hct 37.3 L, MCV 86.7, MCH 29.8, MCHC 34.3, RDW Std Deviation 42.6, RDW Coeff of Ana 13.4, Plt Count 133 L, MPV 10.0, Immature Gran % (Auto) 0.600, Neut % (Auto) 85.4 H, Lymph % (Auto) 6.0 L, [place] % (Auto) 7.8, Eos % (Auto) 0.1, Baso % (Auto) 0.1, Absolute Neuts (auto) 9.5 H, Absolute Lymphs (auto) 0.67 L, Nucleated RBC % 0 05/12/21 05:33: Sodium 137, Potassium 3.9, Chloride 107, Carbon Dioxide 22.0, Anion Gap 8, BUN 16, Creatinine 0.94, Estim Creat Clear Calc 68.79, Est GFR (MDRD) Af Amer 100, Est GFR (MDRD) Non-Af 83, BUN/Creatinine Ratio 17.1, Glucose 164 H, Calcium 8.4 L Micro: Microbiology 05/10/21 11:00 Interface Orders SARS-CoV-2 Antigen (Rapid) - Final Radiography Diagnostic Testing: Radiology Impression Hip X-Ray 05/11/21 17:10 IMPRESSION: Status post left hip arthroplasty. Electronically Signed: Mario Coronado MD at 18:27 EST Reading Location ID and State: [address] [place] [address] , Service support , Physical Exam Narrative GENERAL: cooperative HEENT: Atraumatic; EYES; Anicteric, Normal Conjunctiva NECK; supple, normal thyroid, RESPIRATORY: Diminished to auscultation CARDIOVASCULAR: Regular S1 S2, GI: soft, normoactive bowel sounds, : No Renal angle tenderness; EXTREMITIES: No edema, no clubbing, MUSCULOSKELETAL: Left lower extremity externally rotated NEURO: Awake; no lateralizing signs. SKIN: No Rash PSYCH; Flat affect Assessment & Plan Assessment/Plan (1) Femoral neck fracture: QUALIFIERS: Encounter type: initial encounter Fracture type: closed Laterality: left Qualified Code(s): S72.002A - Fracture of unspecified part of neck of left femur, initial encounter for closed fracture PLAN: Patient is an 80-year-old gentleman admitted following a fall. Imaging studies obtained demonstrated left femoral neck fracture 1. Left femoral neck fracture ?Admitted to regular nursing floor managed with immobilization pain management consult placed to Ortho plan is for patient to undergo surgical intervention on 05/11/2021 -2Postoperative day 1 following Left hip cemented hemiarthroplasty on 05/11/2021. Patient seen pain is controlled. Plan for patient to undergo physical therapy this a.m. 2. Essential hypertension ?Currently not on any medication 3. DVT prophylaxis ?SCDs for now with plans to initiate chemoprophylaxis following patient surgical intervention 4. Physical deconditioning following patient ORIF of the left femoral neck fracture - Requested for PT OT eval and social media strategist to assist with discharge planning
--- NOTE | 2021-05-12 07:53 | PCM.PN.ORT ---
Subjective Subjective Per nursing patient has had periods of confusion associated with the pain medication. Patient's pain is been very well managed. He has not had any narcotic pain medication in 8 hours. Patient denies chest pain, shortness of breath, calf pain, nausea vomiting. Objective Data Objective Data Vital Signs: Vital Signs Temp Pulse Resp BP Pulse Ox 98.6 F 88 18 120/69 96 05/12/21 06:11 05/12/21 06:11 05/12/21 06:11 05/12/21 06:11 05/12/21 06:11 Oxygen Flow Rate (L/min) 3 Oxygen Delivery Method Room Air Weight: 87 kg Body Mass Index (BMI) 25.9 Intake & Output: Intake and Output for Last 24 Hours 05/10/21 05/11/21 05/12/21 23:59 23:59 23:59 Intake Total 750 / 750 3380 / 3680 2150 / 2150 Output Total 250 / 600 900 / 900 300 / 300 Balance 500 / 150 2480 / 2780 1850 / 1850 Lab / Micro Data Result Diagrams: 05/12/21 05:33 05/12/21 05:33 Labs: Laboratory Results - last 24 hr 05/11/21 06:15: Vitamin D 25-Hydroxy 25.0 05/12/21 05:33: WBC 11.1 H, RBC 4.30 L, Hgb 12.8 L, Hct 37.3 L, MCV 86.7, MCH 29.8, MCHC 34.3, RDW Std Deviation 42.6, RDW Coeff of Ana 13.4, Plt Count 133 L, MPV 10.0, Immature Gran % (Auto) 0.600, Neut % (Auto) 85.4 H, Lymph % (Auto) 6.0 L, Walker % (Auto) 7.8, Eos % (Auto) 0.1, Baso % (Auto) 0.1, Absolute Neuts (auto) 9.5 H, Absolute Lymphs (auto) 0.67 L, Nucleated RBC % 0 05/12/21 05:33: Sodium 137, Potassium 3.9, Chloride 107, Carbon Dioxide 22.0, Anion Gap 8, BUN 16, Creatinine 0.94, Estim Creat Clear Calc 68.79, Est GFR (MDRD) Af Amer 100, Est GFR (MDRD) Non-Af 83, BUN/Creatinine Ratio 17.1, Glucose 164 H, Calcium 8.4 L Micro: Microbiology 05/10/21 11:00 Interface Orders SARS-CoV-2 Antigen (Rapid) - Final Radiography Diagnostic Testing: Radiology Impression Hip X-Ray 05/11/21 17:10 IMPRESSION: Status post left hip arthroplasty. Electronically Signed: Mario Coronado MD at 18:27 EST Reading Location ID and State: [facility] / [place] , Service support , Physical Exam Narrative Patient ambulating in the room with the use of a walker. Patient is ambulating with a steady gait. The dressing is clean dry intact. Patient is in no respiratory distress, speaking in full sentences. Neurovascular is otherwise intact. Vital signs labs were within normal limits noted medical record. No calf tenderness negative signs and symptoms of DVT. Const alert and oriented x3 Eyes PERRL Neuro CN's II-XII intact bilaterally Psych mental status grossly normal Assessment & Plan Assessment/Plan (1) Femoral neck fracture: QUALIFIERS: Encounter type: initial encounter Fracture type: closed Laterality: left Qualified Code(s): S72.002A - Fracture of unspecified part of neck of left femur, initial encounter for closed fracture PLAN: 1. Discontinue oxycodone, begin tramadol 50 mg 1-2 p.o. every 6 hours for severe pain 2. Continue Tylenol extra strength 1000 mg p.o. every 8 hours 3. Aspirin 81 mg 1 p.o. every 12 hours x30 days for postop DVT prophylaxis 4. Encourage incentive spirometry 5. Begin physical therapy, weight-bear as tolerated with walker 6. Patient can shower 05/16/2021 7. Mirella removed 05/25/2021 8. Follow-up with Dr. Herr in 2 weeks. (2) Status post-operative repair of closed fracture of left hip:
--- NOTE | 2021-05-12 08:06 | EX.PCM.DISCH ---
Discharge Instructions Diet Discharge Diet: No restrictions Activity Discharge Activity: May Not Drive, May Shower and Use Walker May shower in (days): 3 May resume sexual activity in: No Restrictions Ice area for (Minutes): 30 (every hour while awake.) Weight Bearing Status: Weight bearing as tolerated Keep extremity elevated above heart level: Operative Extremity Dressing / Incision Call your doctor if your incision/area has: Continuous Slow Oozing, Sudden Increased Bleeding, Increased Pain/ Swelling, Increased Redness and Foul Smelling Discharge Call your doctor if you observe: Fever of 101 or Higher, Coldness, Increased Pain, Numbness or Tingling, Change in Color, Shortness of breath, Calf discomfort and Uncontrolled pain Change Dressing in: leave in place till F/U Remove Dressing in: leave in place till F/U Follow Up Care Please Follow Up With: Braydon Herr MD When: Please call [phone] to schedule a follow up appointment. Test Results: Test results from this visit will be discussed in further detail at your follow-up appointment, if applicable. Discharge Plan Admission Admit Date/Time: 05/10/21 10:57 Attending Provider: Ishaan Ferris Primary Care Provider: Brenda Doshi Consulting Providers: Braydon Herr Discharge Orders/Prescriptions Prescriptions: No Action NK RF: 0 Referrals / Follow Up: Brenda Doshi MD [Primary Care Provider] -
[2021-05-12] MEDS: Aspirin 81 MG TAB.CHEW PO ×2 (09:07→21:55)
[2021-05-12] MEDS: Senna/Docusate Sodium 1 Tablet 2 TABLET PO ×2 (09:07→21:55)
[2021-05-12] MEDS: amLODIPine 5 MG Tablet PO (09:12)
--- NOTE | 2021-05-12 10:30 | CASEMGMT ---
Addendum entered by Dipika Sanchez 05/12/21 11:49: TC to [facility], spoke with Kiersten, scheduled PT eval for Tuesday05/18/21 at 1330. This information entered on dc plan and pt/ aware. Faxed progress note to [facility] for order for PT. Original Note: CHANTAL JESUS in to pt room. Pt present. Pt just finished working with therapy. Pt sitting up in chair in good spirits. Discussed with pt and if he still feels he wants to go to TCU. Pt states he would like to go home. Pt states he needs therapy. Discussed home therapy vs outpt. CHANTAL JESUS spoke with therapist who states it would be good for pt to go outpt. Then discussed this with pt and and they are agreeable to this. Pt has chosen [facility] as his as been there in the past. They would like for CHANTAL JESUS to set up the initial appt.
--- NOTE | 2021-05-12 11:34 | CASEMGMT ---
Social Work Per Jackie, RNCM, pt and have decided that pt can return home with outpatient therapy and no longer needs TCU placement. SW spoke with Kristen in TCU and updated to cancel referral. SEGUNDO Hodgson
[2021-05-12 14:44] VITALS: BP 135/75; PULSE 90; RESP 13; TEMP 37.8; O2SAT 95
[2021-05-12] MEDS: Acetaminophen 500 MG Tablet 1000 MG PO ×2 (14:54→21:55)
--- NOTE | 2021-05-12 15:40 | CHAPLAIN ---
Type of Pastoral Visit _x__ Initial Visit ___ Follow-up Visit ___ On-call Visit ___ General Patient Visit ___ Spiritual Assessment ___ Family Conference ___ Bereavement ___ Rapid Response ___ Code Blue ___ Other (describe below) Pastoral Care Referral From _x__ Patient ___ Family ___ Nurse ___ Physician ___ Ent Physician ___ Prison Officer ___ Other (describe below) Sacrament/Intervention _x__ Active listening ___ Anointing ___ Anabaptist ___ Bereavement ___ Communion _x__ Ioana exploration ___ _x__ Life review _x__ Prayer ___ Reconciliation ___ Sacrament of Sick _x__ Supportive presence ___ Wedding ___ Other (describe below) Pastoral Comments patient talked the entire visit; pt had to be reminded three times that this nicker was from the hospital and not from his rastafarian as he made references to his home and family; pt carried on the conversation but may had some confusion at times; pt is concerned for his who is also dealing with her mother's ;
[2021-05-12 22:24] VITALS: BP 138/76; PULSE 75; RESP 18; TEMP 37.1; O2SAT 97
[2021-05-13 03:01] VITALS: BP 118/64; PULSE 69; RESP 16; TEMP 36.9; O2SAT 94
[2021-05-13 04:49] LABS: Absolute Lymphocyte Count 1.21 X10^3/uL (0.83-4.51); Absolute Neutrophil Count 6.8 X10^3/uL (2.0-7.7); Basophil# 0.01 X10^3/uL; Basophil% 0.1 % (0-1); Eosinophils% 4.2 % (0-5); Hematocrit 38.6 % (40-54); Hemoglobin 12.9 g/dL (13.0-16.5); Lymphocyte # 1.21 X10^3/ul (0.83-4.51); Lymphocyte % 12.8 % (19-41); Mean Corp Hgb Conc 33.4 g/dL (32-36); Mean Corpuscular Hgb 29.3 pg (27.0-32.0); Mean Corpuscular Volume 87.5 fL (80-94); Mean Platelet Vol. 10.4 fl (6.2-12.0); Monocyte# 1.04 X10^3/uL; NRBC Flagged by Analyzer 0 % (0-5); Neutrophil # 6.78 X10^3/uL (2.7-7.7); Neutrophil % 71.4 % (47-70); Platelet Count 146 K/mm3 (150-450); RBC Distribution Width CV 13.5 % (11.6-14.6); RBC Distribution Width SD 43.3 fl (35.1-43.9); Red Blood Count 4.41 M/mm3 (4.6-6.2); White Blood Count 9.5 K/mm3 (4.4-11.0)
[2021-05-13 05:10] LABS: Anion Gap 4 (5-15); BUN 16 mg/dL (7-18); BUN/Creat Ratio 20.3 RATIO (10-20); Calcium,Total 8.6 mg/dL (8.5-10.1); Chloride 107 mmol/L (98-107); Creatinine, Serum 0.79 mg/dL (0.70-1.30); EST Glomerular Filtration Rate 100 mL/min (>60); Est Glom Filt Rate - Afr Amer 121 mL/min (>60); Estimated Creatinine Clearance 64.67 ml/min; Glucose 115 mg/dL (74-106); Sodium Level 138 mmol/L (136-145)
[2021-05-13] MEDS: Acetaminophen 500 MG Tablet 1000 MG PO (06:29)
--- NOTE | 2021-05-13 07:27 | DS.PCM_ITS ---
Providers Date of Admission: 05/10/21 Primary Care Physician: Dr. Brenda Doshi MD Consultations 05/10/21 11:48 Consult: Orthopedics Routine Consulting Provider: Braydon Herr Reason for Consult: left hip fxr EMERGENT Consult: No MD Notified: Yes Date Notified: 05/10/21 Time Notified: 11:02 Method of Notification: Verbal Reason For Visit: HIP FRACTURE Diagnosis Discharge Diagnosis (1) Femoral neck fracture: Status: Acute Code(s): S72.009A - Fracture of unspecified part of neck of unspecified femur, initial encounter for closed fracture Qualifiers: Encounter type: initial encounter Fracture type: closed Laterality: left Qualified Code(s): S72.002A - Fracture of unspecified part of neck of left femur, initial encounter for closed fracture Medications at Discharge Home Medications NK 05/10/21 acetaminophen 1,000 mg PO Q8 PRN #20 tab 05/13/21 amlodipine 5 mg PO DAILY 60 Days #60 tab 05/13/21 rivaroxaban [Xarelto] 10 mg PO DAILY #35 tab 05/13/21 tramadol 50 mg PO Q6H PRN PRN #20 tab 05/13/21 Hospital Course Summary of Care Provided Minutes Spent on Discharge: 35 Hospital Course: Patient is an 80-year-old gentleman admitted following a fall. Imaging studies obtained demonstrated left femoral neck fracture 1. Left femoral neck fracture ?Admitted to regular nursing floor managed with immobilization pain management consult placed to Ortho plan is for patient to undergo surgical intervention on 05/11/2021 -05/12/2021ostoperative day 1 following Left hip cemented hemiarthroplasty on 05/11/2021. Patient seen pain is controlled. Plan for patient to undergo physical therapy this a.m. -05/13/2021; patient seen stable for discharge 2. Essential hypertension ?Currently not on any medication 3. DVT prophylaxis ?SCDs for now with plans to initiate chemoprophylaxis following patient surgical intervention 4. Physical deconditioning following patient ORIF of the left femoral neck fracture - Requested for PT OT eval and drug abuse social worker to assist with discharge planning Physical Exam Narrative GENERAL: cooperative HEENT: Atraumatic; EYES; Anicteric, Normal Conjunctiva NECK; supple, normal thyroid, RESPIRATORY: Diminished to auscultation CARDIOVASCULAR: Regular S1 S2, GI: soft, normoactive bowel sounds, : No Renal angle tenderness; EXTREMITIES: No edema, no clubbing, MUSCULOSKELETAL: Left lower extremity externally rotated NEURO: Awake; no lateralizing signs. SKIN: No Rash PSYCH; Flat affect Weight / BMI Weight Weight: 87 kg Body Mass Index (BMI) 25.9 ABG / Lab / Microbiology Data Result Diagrams: 05/13/21 04:36 05/13/21 04:36 Laboratory: Laboratory Results - last 24 hr 05/13/21 04:36: WBC 9.5, RBC 4.41 L, Hgb 12.9 L, Hct 38.6 L, MCV 87.5, MCH 29.3, MCHC 33.4, RDW Std Deviation 43.3, RDW Coeff of Ana 13.5, Plt Count 146 L, MPV 10.4, Immature Gran % (Auto) 0.500, Neut % (Auto) 71.4 H, Lymph % (Auto) 12.8 L, [place] % (Auto) 11.0 H, Eos % (Auto) 4.2, Baso % (Auto) 0.1, Absolute Neuts (auto) 6.8, Absolute Lymphs (auto) 1.21, Nucleated RBC % 0 05/13/21 04:36: Sodium 138, Potassium 4.0, Chloride 107, Carbon Dioxide 27.0, Anion Gap 4 L, BUN 16, Creatinine 0.79, Estim Creat Clear Calc 64.67, Est GFR (MDRD) Af Amer 121, Est GFR (MDRD) Non-Af 100, BUN/Creatinine Ratio 20.3 H, Glucose 115 H, Calcium 8.6 Microbiology: Microbiology 05/10/21 11:00 Interface Orders SARS-CoV-2 Antigen (Rapid) - Final D/C Instructions Discharge Diet: No restrictions Discharge Activity: Return to Normal Activity May shower in (days): 3 May resume sexual activity in: No Restrictions Ice area for (Minutes): 30 (every hour while awake.) Weight Bearing Status: Weight bearing as tolerated Keep extremity elevated above heart level: Operative Extremity Call your doctor if your incision/area has: Continuous Slow Oozing, Sudden I ncreased Bleeding, Increased Pain/ Swelling, Increased Redness and Foul Smelling Discharge Call your doctor if you observe: Fever of 101 or Higher, Coldness, Increased Pain, Numbness or Tingling, Change in Color, Shortness of breath, Calf discomfort and Uncontrolled pain Please Follow Up With: Braydon Herr MD When: Please call [phone] to schedule a follow up appointment. Meaningful Use Info Meaningful Use Diagnoses (Choose all that apply): None applicable Discharge Plan Admission Admit Date/Time: 05/10/21 10:57 Attending Provider: Ishaan Ferris Primary Care Provider: Brenda Doshi Consulting Providers: Braydon Herr Discharge Orders/Prescriptions Prescriptions: New acetaminophen 500 mg Tablet 1,000 mg PO Q8 PRN (Reason: pain) Qty: 20 RF: 0 amlodipine 5 mg Tablet 5 mg PO DAILY 60 Days Qty: 60 RF: 0 tramadol 50 mg Tablet 50 mg PO Q6H PRN PRN (Reason: severe pain 6-10) Qty: 20 RF: 0 Xarelto 10 mg tablet 10 mg PO DAILY Qty: 35 RF: 0 No Action NK RF: 0 Referrals / Follow Up: Brenda Doshi MD [Primary Care Provider] - Within 1 Week Braydon Herr MD [STAFF PHYSICIAN] - Within 1 Week Disposition Disposition (needs filled in before D/C Order can be placed): Home, Self Care Charges/Coding Visit Charges Inpatient E&M: 93947 Disch Hosp
[2021-05-13 08:24] VITALS: BP 119/76; PULSE 75; RESP 18; TEMP 36.9; O2SAT 98
[2021-05-13] MEDS: Senna/Docusate Sodium 1 Tablet 2 TABLET PO (08:31)
[2021-05-13] MEDS: amLODIPine 5 MG Tablet PO (08:31)
[2021-05-13] MEDS: Aspirin 81 MG TAB.CHEW PO (08:31)
--- NOTE | 2021-05-13 09:56 | CASEMGMT ---
CHANTAL CM in to pt room, pt lying in bed in no distress. Pt states he is anxious to return home. States I could run home if I wanted to. Pt states he still feels well and is agreeable to the outpt therapy plan. Denies further needs at this time.
== END 2021-05-13 11:50 | disposition home or self-care (01) | DRG 522 ==
LOC: ED 10:23 → MS3 11:06
PROVIDERS: Orthopaedic Surgery; Emergency Provider Emergency Medicine; PCP Family Medicine; Visit Provider Internal Medicine
PROC: 0SRS0J9 Replacement of Left Hip Joint, Femoral Surface with Synthetic Substitute, Cemented, Open Approach (ICD-10-PCS; CPT 27125; principal; 2021-05-11 13:10)
DX: S72.002A Fracture of unspecified part of neck of left femur, initial encounter for closed fracture (principal); I10 Essential (primary) hypertension; W00.0XXA Fall on same level due to ice and snow, initial encounter; Y93.9 Activity, unspecified; Y92.9 Unspecified place or not applicable
CPT/HCPCS: 36415; 71045; 73502; 80048; 82306; 85025; 85610; 86850; 86900; 86901; 87426; 88307; 88311; 93005; 97162; 97166; 99251; 99285; C1776; J7030; J7120; A4216; G0463; J2405

== ENCOUNTER 2021-06-24 10:28 | Outpatient (CLI) | payer MEDICARE, SELFPAY ==
[2021-06-24 10:31] LABS: Bacteria 0 SEEN /hpf (None Seen); Mucous, Urine 0 SEEN /hpf (<or=2+); Red Blood Cells-Urine 0 SEEN /hpf (0-5); Squamous Epithelial Cells - UA 0 SEEN /hpf (0-5); White Blood Cells 0 SEEN /hpf (0-5)
[2021-06-24 12:30] LABS: Color, Urine Yellow (Yellow); Glucose, Dipstick Normal (Normal); Ketone-Dipstick Negative (Negative); Leukocyte Esterase-Dipstick Negative /ul (Negative); Nitrite-Dipstick Negative (Negative); Occult Blood-Urine Negative /ul (Negative); Protein-Dipstick Negative (Negative); Specific Gravity, Urine 1.015 (1.002-1.030); Urine Bilirubin Dipstick Negative (Negative); Urine Clarity Sl. Cloudy (Clear); Urine Urobilinogen 1 mg/dl (Normal)
[2021-06-24 12:36] LABS: Amorphous Sediment 1+; Calcium Oxalate Crystals Ur 1+ /hpf (<or=2+)
== END 2021-06-24 23:59 | disposition home or self-care (01) ==
LOC: MFPLAB 10:29
PROVIDERS: PCP Family Medicine; Referring Provider Family Medicine; Visit Provider Family Medicine
DX: R41.0 Disorientation, unspecified (principal)
CPT/HCPCS: 81001; 87086

== ENCOUNTER 2021-09-20 22:32 | Inpatient (IN) | payer MEDICARE, SELFPAY ==
[2021-09-20 22:33] VITALS: BP 169/69; PULSE 66; RESP 18; TEMP 36.7; O2SAT 99; BMI 25.9
--- NOTE | 2021-09-20 22:49 | RAD_ITS ---
STUDY: X-RAY - PELVIS AND RIGHT HIP REASON FOR EXAM: Male, 80 years old. FALL TECHNIQUE: 3 views of the pelvis and hip. COMPARISON: Pelvis x-ray 05/11/2020. FINDINGS: Acute fracture right femoral neck subcapital with mild cephalad migration of the distal femur. Femoral heads normal contour. No dislocation at the hips. Surgical hardware in the left hip, acetabular and femoral components of the joint prosthesis partially included, in anatomic alignment. RAD/HIP, UNI W/ Pelvis 2-3 Views IMPRESSION: Acute mildly displaced right femoral neck fracture. Left total hip arthroplasty. Electronically Signed: Lynn Badillo MD at 0:03 EDT ,
--- NOTE | 2021-09-20 23:04 | ED.VIS.LOWEX ---
HPI History of Present Illness Chief Complaint: Lower Extremity Injury Informant: patient Occured/Mechanism Mechanism/Context: Yes fall Comment: Same level fall, mechanical, lost his footing while picking up a cable that goes across his driveway Onset/Context/Timing Onset: Today (Just prior to arrival) Context: Sudden Onset Timing: Continuous Quality of Pain: Aching Location: Right hip Current Severity: Mild Maximum Severity: Severe Worsened by: Moving, trying to bear weight Relieved by: Remaining still Associated Symptoms Associated Symptoms: Positive for Loss of Funtion; Negative for Parasthesia or Weakness Narrative Narrative: Patient fell onto his right hip. He has a history of hardware in his left hip and femur. [facility] Medical History (Updated 09/20/21 @ 23:[address] Amrit eJrnigan MD) Hernia HTN (hypertension) Home Medications NK 05/10/21 [History Last Taken Unknown] Allergy/AdvReac Type Severity Reaction Status Date / Time No Known Allergies Allergy Unverified 09/20/21 22:38 Family History Father Myocardial infarction Surgical History (Updated 09/20/21 @ 23:[address] Fiona Hercules MD) Status post-operative repair of closed fracture of left hip Social History (Updated 09/20/21 @ 23:[address] Fiona Hercules MD) household members: spouse Smoking Status: Never smoker alcohol intake: current alcohol intake frequency: a few times a week Alcohol type: beer substance use type: does not use ROS ROS ED Constitutional Constitutional ED: Denies chills or fever(s) Eyes Eyes: Denies change in vision or diplopia ENT ENT ED: Denies rhinorrhea or sore throat Cardiovascular Cardiovascular: Denies chest pain or palpitations Respiratory/Chest Respiratory/Chest: Denies cough or dyspnea Gastrointestinal Gastrointestinal: Denies abdominal pain, diarrhea, nausea or vomiting Genitourinary Genitourinary ED: Denies dysuria or hematuria Musculoskeletal Musculoskeletal: Reports extremity pain; Denies neck pain Integumentary Denies Abrasions, rash or wounds Neurologic Neurologic: Denies paresthesias or weakness Psychiatric Psychiatric: Denies anxiety or suicidal thoughts EXAM Physical Exam Const Vital Signs: 09/20/21 22:33 Temperature 98.0 F Temperature Source Temporal Pulse Rate 66 Respiratory Rate 18 Blood Pressure 169/69 H Blood Pressure Mean 102 Pulse Ox 99 Oxygen Delivery Method Room Air Positive well nourished and well developed General Appearance ED: well developed and NAD HEENT Reports moist mucous membranes normocephalic and atraumatic Eyes PERRL and EOMs intact bilaterally Neck full ROM and supple Resp normal respiratory effort and clear to auscultation bilaterally Cardio regular rate, regular rhythm and no murmurs GI non-tender and non-distended Auscultation: normoactive bowel sounds Palpation: soft Back/Spine normal ROM and normal to inspection General Back: other FROM Extremity Extremity Narrative: Shortened externally rotated right lower extremity with significant pain in the right groin with any internal/external rotation. Pelvis is stable to AP compression and nontender, stable to lateral compression. No other signs of injury, no other areas of bony tenderness including the greater trochanter. General Extremety ED: Negative for pulses abnormal General Extremity: Negative for pulses abnormal Neuro oriented x3, no focal motor deficits and no sensory deficits noted Sensorium / Orientation: alert Motor Exam: strength 5/5 throughout Psych mental status grossly normal and thought process normal Skin no wounds Rashes: no rashes MDM MDM MDM Narrative Medical decision making narrative: 3 view right hip and pelvis x-rays of my interpretation consistent with the basicervical femoral neck fracture. No dislocation of the femoral head noted. Patient was given morphine and prophylactic Zofran he is doing well with that. Preoperative orders obtained plan will be for admission, discussed with orthopedics Dr. Cote, pt is pt of [facility]. Lab Data Attestation: I reviewed the patient's lab results. Labs: Laboratory Results - last 24 hr 09/20/21 09/20/21 22:48 22:48 WBC 10.0 RBC 4.93 Hgb 14.6 Hct 44.6 MCV 90.5 MCH 29.6 MCHC 32.7 RDW Std Deviation 48.1 H RDW Coeff of Ana 14.5 Plt Count 202 MPV 11.5 Immature Gran % (Auto) 0.900 Neut % (Auto) 70.2 H Lymph % (Auto) 15.7 L [place] % (Auto) 8.4 Eos % (Auto) 4.0 Baso % (Auto) 0.8 Absolute Neuts (auto) 7.0 Absolute Lymphs (auto) 1.57 Nucleated RBC % 0 Sodium 137 Potassium 5.6 H Chloride 108 H Carbon Dioxide 23.0 Anion Gap 6 BUN 22 H Creatinine 0.86 Estim Creat Clear Calc 72.97 Est GFR (MDRD) Af Amer 110 Est GFR (MDRD) Non-Af 91 BUN/Creatinine Ratio 25.6 H Glucose 127 H Calcium 9.1 Radiography Chest X-Ray - ED: 1 View, Read by ED Physician and No Acute Disease Discharge Plan Triage Chief Complaint: Lower Extremity Injury ED Provider: Amrit Jernigan Dx/Rx/DC Orders Clinical Impression: Closed basicervical fracture of neck of right femur Prescriptions: No Action NK Primary Care Provider: Brenda Doshi Referrals: Brenda Doshi MD [Primary Care Provider] - Disposition Disposition: Acute Care Hospital [facility]
[2021-09-20 23:08] LABS: Absolute Lymphocyte Count 1.57 X10^3/uL (0.83-4.51); Basophil# 0.08 X10^3/uL; Basophil% 0.8 % (0-1); Hematocrit 44.6 % (40-54); Hemoglobin 14.6 g/dL (13.0-16.5); Lymphocyte # 1.57 X10^3/ul (0.83-4.51); Lymphocyte % 15.7 % (19-41); Mean Corp Hgb Conc 32.7 g/dL (32-36); Mean Corpuscular Hgb 29.6 pg (27.0-32.0); Mean Corpuscular Volume 90.5 fL (80-94); Mean Platelet Vol. 11.5 fl (6.2-12.0); Monocyte# 0.84 X10^3/uL; Monocyte% 8.4 % (0-10); NRBC Flagged by Analyzer 0 % (0-5); Neutrophil # 6.99 X10^3/uL (2.7-7.7); Neutrophil % 70.2 % (47-70); Platelet Count 202 K/mm3 (150-450); RBC Distribution Width CV 14.5 % (11.6-14.6); RBC Distribution Width SD 48.1 fl (35.1-43.9); Red Blood Count 4.93 M/mm3 (4.6-6.2)
[2021-09-20] MEDS: Morphine 4 MG/ML Syringe IV (23:11)
[2021-09-20] MEDS: Ondansetron 4 MG/2 ML Vial IV (23:12)
[2021-09-20 23:20] LABS: Anion Gap 6 (5-15); BUN 22 mg/dL (7-18); BUN/Creat Ratio 25.6 RATIO (10-20); Calcium,Total 9.1 mg/dL (8.5-10.1); Chloride 108 mmol/L (98-107); Creatinine, Serum 0.86 mg/dL (0.70-1.30); EST Glomerular Filtration Rate 91 mL/min (>60); Est Glom Filt Rate - Afr Amer 110 mL/min (>60); Estimated Creatinine Clearance 72.97 ml/min; Glucose 127 mg/dL (74-106); Potassium 5.6 mmol/L (3.5-5.1); Sodium Level 137 mmol/L (136-145)
--- NOTE | 2021-09-20 23:20 | RAD_ITS ---
STUDY: X-RAY CHEST REASON FOR EXAM: Male, 80 years old. preoperative TECHNIQUE: AP portable. 11:31 PM. 2 images. COMPARISON: 05/10/2021. FINDINGS: LUNGS: No consolidation. No pneumothorax. MEDIASTINUM: Aorta atherosclerotic. CARDIAC SILHOUETTE: Not enlarged. BONES AND SOFT TISSUES: Degenerative changes in the dorsal spine. RAD/Chest 1 View IMPRESSION: No evidence of active intrathoracic disease. Electronically Signed: Lynn Badillo MD at 0:01 EDT ,
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
--- NOTE | 2021-09-20 23:54 | EKG12_ITS ---
Test Reason : MOORNING EKG Blood Pressure : / mmHG Vent. Rate : 072 BPM Atrial Rate : 072 BPM P-R Int : 146 ms QRS Dur : 092 ms QT Int : 386 ms P-R-T Axes : 054 -61 049 degrees QTc Int : 422 ms Normal sinus rhythm Left axis deviation Poor R wave progression Abnormal ECG Confirmed by RUBY PEREZ, TANNA ([id number]), film or videotape editor SHAMIKA TOMLIN ([id number]) on 09/23/2021 8:35:55 AM Referred By: BENJA Confirmed By:TANNA BELTRAN MD
[2021-09-21] VITALS (16 sets, daily range): BP systolic 133–188; BP diastolic 68–96; PULSE 65–98; RESP 15–18; TEMP 36.3–37.6; O2SAT 95–100; BMI 24.7
[2021-09-21] MEDS: 0.9% Saline Lock 10 ML Syringe IV ×2 (01:32→07:46)
[2021-09-21] MEDS: Morphine 4 MG/ML Syringe IV ×2 (01:32→07:45)
[2021-09-21] MEDS: amLODIPine 5 MG Tablet PO (01:40)
[2021-09-21] MEDS: 0.9% Normal Saline 1,000 ML 100 ML IV ×2 (01:40→10:32)
--- NOTE | 2021-09-21 01:54 | NURSING ---
nurse attempted and was unable to insert childers. Pt has a large hernia. Before procedure, pt stated that in the past they have tried to insert a childers with no success.
[2021-09-21 03:13] LABS: Absolute Lymphocyte Count 0.93 X10^3/uL (0.83-4.51); Absolute Neutrophil Count 11.8 X10^3/uL (2.0-7.7); Basophil# 0.05 X10^3/uL; Basophil% 0.4 % (0-1); Eosinophils% 0.7 % (0-5); Hematocrit 43.6 % (40-54); Hemoglobin 14.4 g/dL (13.0-16.5); Lymphocyte # 0.93 X10^3/ul (0.83-4.51); Lymphocyte % 6.6 % (19-41); Mean Corpuscular Hgb 29.9 pg (27.0-32.0); Mean Corpuscular Volume 90.5 fL (80-94); Mean Platelet Vol. 10.7 fl (6.2-12.0); Monocyte# 1.09 X10^3/uL; Monocyte% 7.7 % (0-10); NRBC Flagged by Analyzer 0 % (0-5); Neutrophil # 11.78 X10^3/uL (2.7-7.7); Neutrophil % 83.7 % (47-70); Platelet Count 197 K/mm3 (150-450); RBC Distribution Width CV 14.1 % (11.6-14.6); Red Blood Count 4.82 M/mm3 (4.6-6.2); White Blood Count 14.1 K/mm3 (4.4-11.0)
[2021-09-21 03:14] LABS: AST(SGOT) 17 U/L (15-37); Alanine Aminotransfer ALT/SGPT 19 U/L (16-61); Albumin, Serum 3.3 g/dL (3.2-5.0); Alkaline Phosphatase 56 U/L (45-117); Anion Gap 7 (5-15); BUN 19 mg/dL (7-18); Chloride 104 mmol/L (98-107); Creatinine, Serum 0.76 mg/dL (0.70-1.30); EST Glomerular Filtration Rate 105 mL/min (>60); Est Glom Filt Rate - Afr Amer 127 mL/min (>60); Estimated Creatinine Clearance 62.75 ml/min; Globulin 3.4 g/dL (2.2-4.2); Glucose 133 mg/dL (74-106); Protein, Total 6.7 g/dL (6.4-8.2); Sodium Level 138 mmol/L (136-145)
--- NOTE | 2021-09-21 08:38 | PN.HOSP_ITS ---
Subjective Subjective Planes of severe pain in his right lower extremity. Keeps repeating that he needs to be knocked out as this is what happened during his last time he broke his left hip. Objective Data Objective Data Vital Signs: Vital Signs Temp Pulse Resp BP Pulse Ox O2 Del Method 36.7 C 98 18 148/72 H 96 Room Air 09/21/21 07:49 09/21/21 07:49 09/21/21 07:49 09/21/21 07:49 09/21/21 07:49 09/21/21 07:49 Oxygen Delivery Method Room Air Weight: 80.4 kg Body Mass Index (BMI) 24.7 Intake & Output: Intake and Output for Last 24 Hours 09/19/21 09/20/21 09/21/21 23:59 23:59 23:59 Output Total 300 / 300 Balance -300 / -300 Lab / Micro Data Result Diagrams: 09/21/21 02:50 09/21/21 09:15 Labs: Laboratory Results - last 24 hr 09/20/21 22:48: WBC 10.0, RBC 4.93, Hgb 14.6, Hct 44.6, MCV 90.5, MCH 29.6, MCHC 32.7, RDW Std Deviation 48.1 H, RDW Coeff of Ana 14.5, Plt Count 202, MPV 11.5, Immature Gran % (Auto) 0.900, Neut % (Auto) 70.2 H, Lymph % (Auto) 15.7 L, [place] % (Auto) 8.4, Eos % (Auto) 4.0, Baso % (Auto) 0.8, Absolute Neuts (auto) 7.0, Absolute Lymphs (auto) 1.57, Nucleated RBC % 0 09/20/21 22:48: Sodium 137, Potassium 5.6 H, Chloride 108 H, Carbon Dioxide 23.0, Anion Gap 6, BUN 22 H, Creatinine 0.86, Estim Creat Clear Calc 72.97, Est GFR (MDRD) Af Amer 110, Est GFR (MDRD) Non-Af 91, BUN/Creatinine Ratio 25.6 H, G lucose 127 H, Calcium 9.1 09/21/21 02:50: Vitamin D 25-Hydroxy 21.0 09/21/21 02:50: WBC 14.1 H, RBC 4.82, Hgb 14.4, Hct 43.6, MCV 90.5, MCH 29.9, MCHC 33.0, RDW Std Deviation 47.0 H, RDW Coeff of Ana 14.1, Plt Count 197, MPV 10.7, Immature Gran % (Auto) 0.900, Neut % (Auto) 83.7 H, Lymph % (Auto) 6.6 L, [place] % (Auto) 7.7, Eos % (Auto) 0.7, Baso % (Auto) 0.4, Absolute Neuts (auto) 11.8 H, Absolute Lymphs (auto) 0.93, Nucleated RBC % 0 09/21/21 02:50: Sodium 138, Potassium 4.0, Chloride 104, Carbon Dioxide 27.0, Anion Gap 7, BUN 19 H, Creatinine 0.76, Estim Creat Clear Calc 62.75, Est GFR (MDRD) Af Amer 127, Est GFR (MDRD) Non-Af 105, BUN/Creatinine Ratio 25.0 H, Glucose 133 H, Calcium 9.0, Total Bilirubin 0.50, AST 17, ALT 19, Alkaline Phosphatase 56, Total Protein 6.7, Albumin 3.3, Globulin 3.4, Albumin/Globulin Ratio 1.0 Radiography Diagnostic Testing: Radiology Impression Hip/Pelvis X-Ray 09/20/21 22:49 IMPRESSION: Acute mildly displaced right femoral neck fracture. Left total hip arthroplasty. Electronically Signed: Lynn Badillo MD at 0:03 EDT Reading Location ID and State: [address] [place] [address] Tel , Service support , Chest X-Ray 09/20/21 23:20 IMPRESSION: No evidence of active intrathoracic disease. Electronically Signed: Lynn Badillo MD at 0:01 EDT Reading Location ID and State: [facility] / [place] Tel , Service support , Physical Exam Const Constitutional Narrative: Anxious. HEENT head/scalp atraumatic and moist oral mucous membranes Extremity Extremity Narrative: Shortened right lower extremity Neuro Sensorium / Orientation: awake and alert Psych Mood & Affect: anxious Assessment & Plan Assessment/Plan (1) Closed basicervical fracture of neck of right femur: PLAN: Plan The patient is an 80 y/o M w/ PMHx: HTN, history of 05/10/21 discharge following evaluation and treatment for L hip fracture at that time who now re-presents to the [facility] ED on 09/20/21 secondary to unfortunate mechanical fall while attempting to move a cable in his driveway directly onto his right hip currently rating his pain 0 out of 10 unless he moves or laughs which then causes right hip pain which is sharp at approximately 3 to 4-10 in severity. 1. right hip pain s/p mechanical fall w/ right femoral neck fracture: Plain film noting right femoral neck fracture. 2 OR today CM consulted for discharge planning. Per NSQIP patient is average to below average risk for perioperative event with hip fracture as noted, EKG requested and will be obtained while patient is in the ED, chest x-ray reviewed and agree with progression to OR as long as no acute or concerning findings on EKG. 25-hydroxy vitamin D level of 19.4. Start ergocalciferol 50,000 units weekly for 8 weeks. 2. Hypertension: Given hypertension we will resume amlodipine with hold parameters as needed, PRN hydralazine. 3. DVT prophylaxis: SCDs, defer chemoprophylaxis for planned OR. 4. Anxiety Patient very anxious which is complicating his overall care. Despite reassurance that medication be provided he keeps perseverating on his last admission and being knocked out. I did discuss concern that I would have for underlying mild cognitive impairment or even dementia. This may be making his anxiety potentially worse. Patient may benefit from serial geriatrics to be formally evaluated for MCI or dementia. states that he had issues with his anesthesia last time but that she qualify that is saying that had up and about 3 weeks later after the surgery. I told her I was not concerned that that was related with his anesthesia but she stated that his sister had a similar event. Nonetheless, I feel it was unrelated to his anesthesia. Though I be more concerned about him having an event after his surgery today. CODE status: Patient does not have healthcare power of assistant attorney general nor living will in place. Discussed CODE status at length including difference between FULL code, DNR-CCA and DNR-CC status. Following discussions about the differences in these status, requested DNR-CCA, no intubation status he notes specifically because of his advanced age and preference to avoid aggressive interventions. Greater than 35 minutes of which greater than 50% of the time was spent counseling the patient at bedside as well as discussing with his at bedside about his pain control, anxiety and mild cog impairment/dementia. Charges/Coding Visit Charges Inpatient E&M: 23381 Subs Hosp L3
[2021-09-21 09:58] LABS: AST(SGOT) 18 U/L (15-37); Alanine Aminotransfer ALT/SGPT 19 U/L (16-61); Albumin, Serum 3.1 g/dL (3.2-5.0); Alkaline Phosphatase 55 U/L (45-117); Anion Gap 8 (5-15); BUN 16 mg/dL (7-18); BUN/Creat Ratio 23.2 RATIO (10-20); Calcium,Total 8.6 mg/dL (8.5-10.1); Chloride 104 mmol/L (98-107); Creatinine, Serum 0.69 mg/dL (0.70-1.30); EST Glomerular Filtration Rate 117 mL/min (>60); Est Glom Filt Rate - Afr Amer 141 mL/min (>60); Estimated Creatinine Clearance 62.75 ml/min; Globulin 3.1 g/dL (2.2-4.2); Glucose 124 mg/dL (74-106); Potassium 4.1 mmol/L (3.5-5.1); Protein, Total 6.2 g/dL (6.4-8.2); Sodium Level 139 mmol/L (136-145)
[2021-09-21 10:03] LABS: Vitamin D,25 Hydroxy 19.4 ng/mL
--- NOTE | 2021-09-21 10:17 | CON.PCM.OR_ITS ---
HPI Consult Data Date of Consult: 09/21/21 HPI Narrative Reason for Consultation: Right femoral neck fracture HPI Narrative: TANNA RODRIGUEZ, is a 80 M who presents to [facility] after mechanical fall onto his right side while he was working in his driveway yesterday. X-rays in the emergency department revealed a displaced femoral neck fracture. Patient denies any right hip or groin pain. Patient denies any assistive ambulatory device including a cane or walker. Patient is a community ambulator. Patient had a left hip fracture in April 2021 at which time he underwent cemented left hip hemiarthroplasty by my partner Dr. Braydon Herr. He states the left side is doing well. He denies any other pain besides right hip pain. Denies head injury, loss of consciousness, syncopal or presyncopal symptoms prior to the fall. Patient was admitted under the service of the hospitalist last evening after was called from emergency department. Recommended surgical intervention in the form of right hip hemiarthroplasty. [facility] Medical History (Updated 09/21/21 @ 10:[address] Pavel Cote DO) Hernia HTN (hypertension) Home Medications cod liver oil 5 ml PO DAILY supplement 09/21/21 [History Last Taken Unknown] vitamins A,C,T-varf-zptdxw 7,160 unit-113 mg-100 unit tablet (PreserVision AREDS) 1 tab PO BID eye health 09/21/21 [History Last Taken Unknown] Allergy/AdvReac Type Severity Reaction Status Date / Time No Known Allergies Allergy Unverified 09/20/21 22:38 Family History (Updated 09/21/21 @ 00:[address] Fiona Hercules MD) Father Myocardial infarction Heart disease Hypertension Mother Non-alcoholic cirrhosis Surgical History Status post-operative repair of closed fracture of left hip Social History (Updated 09/20/21 @ 23:[address] Fiona Hercules MD) household members: spouse Smoking Status: Never smoker alcohol intake: current alcohol intake frequency: a few times a week Alcohol type: beer substance use type: does not use ROS ROS Narrative 12 point review of systems obtained, negative less otherwise noted HPI. Vital Signs Vital Signs Vital Signs: 09/20/21 22:33 09/21/21 00:09 07/04/22 01:06 Temperature 98.0 F 98.2 F 97.8 F Temperature Source Temporal Temporal Oral Pulse Rate 66 78 75 Respiratory Rate 18 15 18 Respiratory Effort Respiratory Pattern Blood Pressure 169/69 H 137/74 H 188/87 H Blood Pressure Mean 102 95 120 Blood Pressure Source Monitor Blood Pressure Position Supine Blood Pressure Location Right Arm Pulse Ox 99 96 100 Oxygen Delivery Method Room Air Room Air Room Air 09/21/21 02:13 09/21/21 02:00 09/21/21 06:07 Temperature 98.0 F 98.2 F Temperature Source Oral Oral Pulse Rate 79 70 Respiratory Rate 18 18 Respiratory Effort Normal Non-Labored Respiratory Pattern Normal Blood Pressure 169/86 H 138/68 H Blood Pressure Mean 113 91 Blood Pressure Source Monitor Monitor Blood Pressure Position Semi-Fowlers Supine Blood Pressure Location Right Arm Right Arm Pulse Ox 98 96 Oxygen Delivery Method Nasal Cannula Room Air Room Air 09/21/21 07:25 09/21/21 07:49 09/21/21 09:00 Temperature 98.0 F Temperature Source Oral Pulse Rate 98 Respiratory Rate 18 18 Respiratory Effort Normal Non-Labored Respiratory Pattern Blood Pressure 148/72 H Blood Pressure Mean 97 Blood Pressure Source Monitor Blood Pressure Position Supine Blood Pressure Location Right Arm Pulse Ox 95 96 Oxygen Delivery Method Room Air Room Air Weight Weight: 177 lb 4.026 oz Body Mass Index (BMI) 24.7 Physical Exam Narrative General -A&Ox3, NAD, appears stated age. Vital signs stable, afebrile. Respiratory -normal work of breathing, no intercostal retractions. CV -pulses regular, brisk capillary refill ?4 limbs. Abdomen-soft, nontender, nondistended. No guarding, rigidity, rebound tenderness . Musculoskeletal/neurologic -full range of motion nontender throughout bilateral upper extremities, left lower extremity with full sensation and strength in all dermatomes and myotomes. No midline cervical tenderness. Right lower extremity-no obvious deformity. Pain with logroll of the right lo wer extremity. Nontender throughout the right knee femoral shaft, tibial shaft and left foot/ankle. Brisk capillary refill. Sensation intact light touch L3- S1 dermatomes. DF, PF, EHL intact. DP, PT 2+. Pelvis is stable, nontender. Skin is intact without lacerations, abrasions. No ecchymosis noted. Medical Records Data Attestation: I reviewed the patient's medical records Lab / Micro Data Result Diagrams: 09/21/21 02:50 09/21/21 09:15 Labs: Laboratory Results - last 24 hr 09/20/21 22:48: WBC 10.0, RBC 4.93, Hgb 14.6, Hct 44.6, MCV 90.5, MCH 29.6, MCHC 32.7, RDW Std Deviation 48.1 H, RDW Coeff of Ana 14.5, Plt Count 202, MPV 11.5, Immature Gran % (Auto) 0.900, Neut % (Auto) 70.2 H, Lymph % (Auto) 15.7 L, [place] % (Auto) 8.4, Eos % (Auto) 4.0, Baso % (Auto) 0.8, Absolute Neuts (auto) 7.0, Absolute Lymphs (auto) 1.57, Nucleated RBC % 0 09/20/21 22:48: Sodium 137, Potassium 5.6 H, Chloride 108 H, Carbon Dioxide 23.0, Anion Gap 6, BUN 22 H, Creatinine 0.86, Estim Creat Clear Calc 72.97, Est GFR (MDRD) Af Amer 110, Est GFR (MDRD) Non-Af 91, BUN/Creatinine Ratio 25.6 H, Glucose 127 H, Calcium 9.1 09/21/21 02:50: Vitamin D 25-Hydroxy 21.0 09/21/21 02:50: WBC 14.1 H, RBC 4.82, Hgb 14.4, Hct 43.6, MCV 90.5, MCH 29.9, MCHC 33.0, RDW Std Deviation 47.0 H, RDW Coeff of Ana 14.1, Plt Count 197, MPV 10.7, Immature Gran % (Auto) 0.900, Neut % (Auto) 83.7 H, Lymph % (Auto) 6.6 L, [place] % (Auto) 7.7, Eos % (Auto) 0.7, Baso % (Auto) 0.4, Absolute Neuts (auto) 11.8 H, Absolute Lymphs (auto) 0.93, Nucleated RBC % 0 09/21/21 02:50: Sodium 138, Potassium 4.0, Chloride 104, Carbon Dioxide 27.0, Anion Gap 7, BUN 19 H, Creatinine 0.76, Estim Creat Clear Calc 62.75, Est GFR (MDRD) Af Amer 127, Est GFR (MDRD) Non-Af 105, BUN/Creatinine Ratio 25.0 H, Glucose 133 H, Calcium 9.0, Total Bilirubin 0.50, AST 17, ALT 19, Alkaline Phosphatase 56, Total Protein 6.7, Albumin 3.3, Globulin 3.4, Albumin/Globulin Ratio 1.0 09/21/21 07:04: Blood Type B POSITIVE, Antibody Screen NEGATIVE 09/21/21 09:15: Sodium 139, Potassium 4.1, Chloride 104, Carbon Dioxide 27.0, Anion Gap 8, BUN 16, Creatinine 0.69 L, Estim Creat Clear Calc 62.75, Est GFR (MDRD) Af Amer 141, Est GFR (MDRD) Non-Af 117, BUN/Creatinine Ratio 23.2 H, Glucose 124 H, Calcium 8.6, Total Bilirubin 0.40, AST 18, ALT 19, Alkaline Phosphatase 55, Total Protein 6.2 L, Albumin 3.1 L, Globulin 3.1, Albumin/Globulin Ratio 1.0 09/21/21 09:15: Vitamin D 25-Hydroxy 19.4 Radiology Impression Hip/Pelvis X-Ray 09/20/21 22:49 IMPRESSION: Acute mildly displaced right femoral neck fracture. Left total hip arthroplasty. Electronically Signed: Lynn Badillo MD at 0:03 EDT Reading Location ID and State: [address] [place] [address] Tel , Service support , Chest X-Ray 09/20/21 23:20 IMPRESSION: No evidence of active intrathoracic disease. Electronically Signed: Lynn Badillo MD at 0:01 EDT , Assessment & Plan Assessment/Plan (1) Closed displaced fracture of right femoral neck: PLAN: Patient sustained a right displaced femoral neck fracture. -Closed, neurovascularly intact -Isolated injury -Recommending surgical intervention in the form of right cemented hip hemiarthroplasty -I discussed the procedure-its risks, benefits and alternative. Risks include but are not limited to bleeding, infection, loss of life or limb, risk of anesthesia, persistent pain or disability, need for additional surgery, instability, failure of orthopedic hardware, neurovascular injury, DVT or PE. Patient expressed understanding these risks and wished proceed with surgery. -Maintenance IV fluids, clear liquid diet after midnight n.p.o. at 2 hours prior to surgery -Type and screen -2 g Ancef, 1 g TXA IV on-call to the OR -Bedrest, heel protectors -Plan to proceed with surgery later today when OR becomes available Thank you for this consultation.
[2021-09-21] MEDS: HYDROmorphone 1 MG/ML Syringe IV (10:31)
--- NOTE | 2021-09-21 11:00 | HIP_PTH ---
PATIENT: TANNA RODRIGUEZ LOC: MS3 U#:[id number] AGE/SX: 80/M ROOM: [facility] [place] RE09/20/[address]: Dr. Eloy Ryan DO : 1940 BED: 1 DIS: 09/22/2021 SPEC #: [id number] RECD: 09/22/21 12:35 STATUS: TAO REElvin #: [id number] VISHNU: 09/21/21 11:[address]: Pavel Cote DEPT: SURGICAL PATHOLOGY RECD BY: Sachi Sullivan ENTERED: 09/22/21 13:54 SP TYPE: TOTAL HIP OTHR DR: MD Dr. Fiona Babb MD Dr. Eric Jopperi, DO Tissues: Hip, NOS Procedures: Decalcification bone/plaque Surgery Specimen Level IV HEADER OPERATION: Right hip hemiarthroplasty PRE-OP DIAGNOSIS: Closed displaced fracture of right femoral neck TISSUE SUBMITTED: Right femoral head MICROSCOPIC DIAGNOSIS Right femoral head, hemiarthroplasty: Femoral head with focal area of hemorrhage, clinically fracture of right femoral neck. SANDY:vincent 09/25/2021 MICROSCOPIC DESCRIPTION Slides are reviewed. GROSS DESCRIPTION Received is one container labeled with the patient's name and designated right femoral head. The specimen consists of a cagle femoral head measuring 5.5 x 5 x 5 cm. The articular surface shows focal pitting. No eburnation is identified. The non-articular surface is hemorrhagic and irregular consistent with fracture site. Also present free in the specimen container is an irregular fragment of dark cagle bone measuring 4 x 2.5 x 1.5 cm. [employer] Supervisor sections are submitted in two cassettes after decalcification. / AM:vincent 09/22/2021 TC:5 CPT: 51972, 38613
[2021-09-21] MEDS: Cefazolin 2 GM in 0.9% Normal Saline 100 ML IV ×2 (11:11→18:25)
[2021-09-21] MEDS: Bupivacaine Mpf 0.5% 30 ML VIAL (12:14)
[2021-09-21] MEDS: Lactated Ringers 1,000 ML 15 ML IV (12:15)
--- NOTE | 2021-09-21 13:02 | PCM.OPRPT ---
Report of Operation Date of Procedure: 09/21/21 Description of Surgical Findings:: Preoperative diagnosis: Right displaced femoral neck fracture Postoperative diagnosis: Right displaced femoral neck fracture Procedure: Right cemented hip hemiarthroplasty Surgeon: Pavel Cote DO Oil Heat Technician: FRED Prince Anesthesia: General endotracheal Anesthesiologist: Dr. Malone Complications: None apparent Drains: None Estimated blood loss: 200 cc Urinary output: None recorded IV fluids: 1400 cc crystalloid Specimens: None Surgical implants: Bodfish Accolade C 127 degree neck angle hip stem size #5 with medium 14 mm outer diameter distal spacer, Unitrax neck adjustment sleeve standard, Unitrax endoprosthesis head component outer diameter 50 mm, Simplex cement Indications: This is an 80-year-old female who sustained a ground-level fall yesterday 09/20/21. He landed on his right side. He was brought to [facility] where x-rays revealed a displaced right femoral neck fracture. He was admitted under the service of the hospitalist. I was consulted to see the patient for surgical recommendations. I recommended a right hip hemiarthroplasty due to the pattern and displacement. I reviewed the procedure with the patient, its risk, benefits, alternatives. Risks included but were not limited to bleeding, infection, loss of life or limb, risk of anesthesia, neurovascular injury, persistent pain, instability, need for additional surgery, failure of orthopedic hardware, loosening, osteolysis, need for assistive devices long-term. Patient expressed understanding wish to proceed with surgery. Description of procedure: Prior to the procedure, patient was brought to the preoperative holding area where patient was identified by name, medical record number and date of . I confirmed the side, site, operation to be performed with the patient. Informed consent was confirmed, All questions were answered to patient satisfaction. The operative extremity was marked. He was also seen by anesthesia staff and anesthesia consent obtained.At time of the operative procedure, pt was brought to the operative suite. General anesthesia was induced on the hospital bed and endotracheal tube placed. After adequate anesthesia, patient was transferred to a standard operating table. He was then positioned in the lateral decubitus position with the right side up and held in position by a pegboard system. All bony prominences were well-padded. An axillary roll was placed under the patient's left axilla. Peroneal nerve was free with a blanket on the nonoperative extremity. Leg lengths were reproduced from patient's position when he was supine. The right lower extremity was then prepped and draped in normal, sterile orthopedic fashion. We performed a timeout with all parties in attendance in agreement with the side, site, and operation to be performed. No concerns were voiced and would like to proceed. 2 g Ancef and 1 g tranexamic acid were administered IV prior to the incision. An additional 1 g IV tranexamic acid was administered at time of closure. I first marked an incision along the lateral aspect of the hip centered over the greater trochanteric tip. In standard posterior approach, a curvilinear incision was made above the trochanter. An approximately 12 cm incision was made. Skin was sharply incised with a 10 blade scalpel carried deep through subcutaneous layers to the level of the fascia anamaria. Gelpi retractors were then placed. A Greene was used to expose the fascia anamaria. Bovie cautery was then used for hemostasis and then to open the fascia anamaria. This was opened in line with the incision. Gluteus gladys muscle fibers were split through a raphae via blunt dissection. A Charnley retractor was then placed ensuring the sciatic nerve was free. The trochanteric bursa was then debrided. This identified the short external rotators after internal rotation of the hip. The fracture site was easily identified at this point. Short external rotators were taken down and tagged for later repair. Hip capsule was incised and a T-shaped capsulotomy performed. The capsule was also tagged for repair with a stay suture. We then freshened the neck cut with a sagittal saw. Anterior and posterior acetabular retractors were placed to gain access to the femoral head. A corkscrew was used to remove the head. Any remaining debris was debrided from the acetabulum. We then placed the femoral head on the back table for measurement. We did use trial heads and selected a final size 50 with good suction fit. I then elevated the femur using a femoral elevator. Box chisel was then utilized to gain access to the femoral canal. Canal finder was placed. Sequential broaches were used and press-fit manner. A final size 5 achieved excellent vertical and rotational stability. We then trialed with a high offset stem. Leg lengths appeared appropriate with a size 0 neck length. Hip was stable through range of motion. Trials were dislocated and subsequently removed. I then prepared the femur for cementation. I copiously irrigated the femoral canal. Cement restrictor was placed to 15 cm from the calcar. I used a wire brush and irrigation to remove bone from the cancellous femoral canal. Cement was then prepared on the back table. During this time, I placed a lap sponge in the acetabulum and vaginal packing in the femoral canal. Cement was allowed to cure slightly and was then injected in the femoral canal after removing the vaginal packing. Canal was pressurized. I then inserted the femoral stem reproducing the version of the trial broaches. This was held in place until cement fully cured. Excess cement was removed. I then remove the lap sponge from the acetabulum ensuring no cement remained. I then trialed a neutral neck length which appeared very stable through range of motion. Final dislocation was performed. Final head implant was impacted over a clean dry Smith taper femoral neck. Final reduction was performed. We copiously irrigated the wound with normal saline solution and irrisept solution. I anesthetized the pericapsular and subcutaneous tissues with 30 cc 0.5% plain bupivacaine. A posterior capsular repair was performed with #2 Ethibond suture utilizing bone tunnels. IT band was closed watertight with #1 strata fix. Deeper fascial layers were closed with 0 Vicryl suture in interrupted fashion. Subcutaneous layers were reapproximated with 2-0 Vicryl suture and skin reapproximated with skin bakari. A silver dressing was applied. Patient tolerated procedure well without complication. He was positioned back in the supine position on her hospital bed and subsequently extubated safely. He was transferred to PACU in stable condition. Pillows were placed between the patient's legs for use while in bed the first 24 hours after surgery. Post Operative Plan: Weightbearing: Weightbearing as tolerated right lower extremity, posterior hip precautions Antibiotics: Ancef 1 g every 8 hours x 3 doses DVT Prophylaxis: Aspirin 81 mg twice daily to start tomorrow for DVT prophylaxis Castillo: None Dressing: Maintain silver dressing x7 days X-Rays: PACU x-rays were reviewed demonstrated well-positioned right hip hemiarthroplasty implant. Follow-up 2-week x-rays in the office. Follow-up: 2 weeks in my office for staple removal
--- NOTE | 2021-09-21 13:12 | RAD_ITS ---
STUDY: X-RAY - PELVIS AND RIGHT HIP REASON FOR EXAM: Male, 80 years old. Post Op -- AP both hips on single liam/lateral of op hip PACU TECHNIQUE: 2 views of the pelvis and hip. COMPARISON: Pelvic x-ray dated September 20, 2021 FINDINGS: Status post surgical resection of the right femoral head and neck. The proximal one third femoral prosthetic component is well placed within the intramedullary cavity as well as the acetabular cup. Both prosthetic components demonstrate good bony contact and alignment. Expected postoperative changes of the overlying soft tissues including gas and swelling. Surgical bakari are also present. Stable pre-existing left hip prosthesis. No visualized occult fractures. RAD/Hip Min 2 Views (Portable) IMPRESSION: 1. Status post right hip arthroplasty Electronically Signed: Mario Coronado MD at 14:24 EDT ,
[2021-09-21] MEDS: Calcium Carbonate 500 MG Tablet PO (16:13)
[2021-09-21] MEDS: Senna/Docusate Sodium 1 Tablet 2 TABLET PO (22:51)
[2021-09-22] MEDS: oxyCODONE 5 MG Tablet PO (03:16)
[2021-09-22] MEDS: Acetaminophen 325 MG Tablet 650 MG PO (03:16)
[2021-09-22] MEDS: Cefazolin 2 GM in 0.9% Normal Saline 100 ML IV ×2 (03:17→11:25)
[2021-09-22 03:19] VITALS: BP 167/79; PULSE 82; RESP 18; TEMP 37.1; O2SAT 96
[2021-09-22 06:13] VITALS: BP 140/79; PULSE 82; RESP 16; TEMP 36.9; O2SAT 95
[2021-09-22 06:35] LABS: Hematocrit 41.8 % (40-54); Hemoglobin 13.8 g/dL (13.0-16.5); Mean Corpuscular Hgb 29.7 pg (27.0-32.0); Mean Corpuscular Volume 89.9 fL (80-94); Mean Platelet Vol. 10.5 fl (6.2-12.0); Platelet Count 188 K/mm3 (150-450); RBC Distribution Width CV 14.5 % (11.6-14.6); RBC Distribution Width SD 47.4 fl (35.1-43.9); Red Blood Count 4.65 M/mm3 (4.6-6.2)
--- NOTE | 2021-09-22 06:57 | PN.ORTHO_ITS ---
Subjective Subjective Patient seen and examined at bedside this morning. Patient ambulating with nursing overnight. Patient up to chair this morning. Urinating without difficulty. Denies fevers, chills, nausea vomiting, chest pain or shortness of breath. Tolerating oral intake. Objective Data Objective Data Vital Signs: Vital Signs Temp Pulse Resp BP Pulse Ox O2 Del Method 98.4 F 82 16 140/79 H 95 Room Air 09/22/21 06:13 09/22/21 06:13 09/22/21 06:13 09/22/21 06:13 09/22/21 06:13 09/22/21 06:13 Oxygen Delivery Method Room Air Weight: 177 lb 4.026 oz Body Mass Index (BMI) 24.7 Intake & Output: Intake and Output for Last 24 Hours 09/20/21 09/21/21 09/22/21 23:59 23:59 23:59 Intake Total 3376.67 / 3376.67 535.75 / 535.75 Output Total 850 / 850 Balance 2526.67 / 2526.67 535.75 / 535.75 Lab / Micro Data Result Diagrams: 09/22/21 06:23 09/21/21 09:15 Labs: Laboratory Results - last 24 hr 09/21/21 02:50: Vitamin D 25-Hydroxy 21.0 09/21/21 07:04: Blood Type B POSITIVE, Antibody Screen NEGATIVE 09/21/21 09:15: Sodium 139, Potassium 4.1, Chloride 104, Carbon Dioxide 27.0, Anion Gap 8, BUN 16, Creatinine 0.69 L, Estim Creat Clear Calc 62.75, Est GFR (MDRD) Af Amer 141, Est GFR (MDRD) Non-Af 117, BUN/Creatinine Ratio 23.2 H, Glucose 124 H, Calcium 8.6, Total Bilirubin 0.40, AST 18, ALT 19, Alkaline Phosphatase 55, Total Protein 6.2 L, Albumin 3.1 L, Globulin 3.1, Albumin/Globulin Ratio 1.0 09/21/21 09:15: Vitamin D 25-Hydroxy 19.4 09/22/21 06:23: WBC 13.0 H, RBC 4.65, Hgb 13.8, Hct 41.8, MCV 89.9, MCH 29.7, MCHC 33.0, RDW Std Deviation 47.4 H, RDW Coeff of Ana 14.5, Plt Count 188, MPV 10.5 Radiography Diagnostic Testing: Radiology Impression Hip X-Ray 09/21/21 13:12 IMPRESSION: 1. Status post right hip arthroplasty Electronically Signed: Mario Coronado MD at 14:24 EDT Reading Location ID and State: [facility] / [place] , Service support , Physical Exam Narrative General - A&Ox3, NAD. VSS/AF Right lower extremity -incisional dressing C/D/I. SILT Sural, Saphenous, SPN, DPN, Tibial N. distributions. DP, PT 2+. BCR. DF, PF, EHL 5/5. No calf TTP. Assessment & Plan Assessment/Plan (1) Closed displaced fracture of right femoral neck: PLAN: POD#1 s/p cemented right hip hemiarthroplasty - Pain control - Medicine following for medical management - PT/OT-weightbearing as tolerated, posterior hip precautions - DVT PPX -aspirin 81 mg twice daily, SCDs, CÉSAR dunne, early mobilization - Case management - D/C planning
[2021-09-22 07:02] LABS: Anion Gap 7 (5-15); BUN 13 mg/dL (7-18); Calcium,Total 8.9 mg/dL (8.5-10.1); Chloride 105 mmol/L (98-107); Creatinine, Serum 0.93 mg/dL (0.70-1.30); EST Glomerular Filtration Rate 83 mL/min (>60); Est Glom Filt Rate - Afr Amer 100 mL/min (>60); Estimated Creatinine Clearance 67.47 ml/min; Glucose 137 mg/dL (74-106); Sodium Level 138 mmol/L (136-145)
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
[2021-09-22] MEDS: Calcium Carbonate 500 MG Tablet PO ×3 (09:05→16:55)
[2021-09-22] MEDS: Ergocalciferol 1.25 MG (50, 000 UNIT) Capsule PO (09:05)
[2021-09-22] MEDS: amLODIPine 5 MG Tablet PO (09:06)
[2021-09-22] MEDS: Senna/Docusate Sodium 1 Tablet 2 TABLET PO (09:06)
[2021-09-22] MEDS: Aspirin E.C. 81 MG Tablet PO (09:10)
[2021-09-22 10:15] VITALS: BP 148/84; PULSE 86; RESP 16; TEMP 37.2; O2SAT 95
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
[2021-09-22 15:34] VITALS: BP 148/86; PULSE 85; RESP 16; TEMP 36.8; O2SAT 95
--- NOTE | 2021-09-22 17:32 | DCINST_ITS ---
Discharge Instructions Diet Discharge Diet: No restrictions Activity Discharge Activity: May Not Drive and Use Walker Weight Bearing Status: Weight bearing as tolerated Keep extremity elevated above heart level: Right Leg Dressing / Incision Call your doctor if your incision/area has: Continuous Slow Oozing, Sudden Increased Bleeding, Increased Pain/ Swelling, Increased Redness, Foul Smelling Discharge and Swelling at the incision site Follow Up Care Test Results: Test results from this visit will be discussed in further detail at your follow- up appointment, if applicable. Discharge Plan Admission Admit Date/Time: 09/20/21 23:48 Primary Reason for Your Visit: right hip fracture Attending Provider: Eloy Ryan Primary Care Provider: Brenda Doshi Consulting Providers: Fiona Hercules ; Pavel Cote Instructions Additional Instructions / Restrictions: Right hip: Maintain surgical dressing until 09/28/2021 then okay to remove and leave open to air if no drainage. If drainage, apply dry sterile dressing daily. Okay to shower with dressing on postoperative day #3. Posterior hip precautions right hip-no hip flexion greater than 90 degrees, no internal rotation, no crossing legs. Weightbearing as tolerated right lower extremity. Continue aspirin 81 mg twice daily for DVT prophylaxis 28 days postoperatively. Discharge Orders/Prescriptions Prescriptions: New aspirin 81 mg Tablet,Delayed Release (Dr/Ec) 81 mg PO BID Qty: 60 0RF amlodipine 5 mg Tablet 5 mg PO DAILY Qty: 30 0RF oxycodone 5 mg Tablet 5 mg PO Q6H PRN (Reason: pain (scale score 7-10)) 3 Days Qty: 12 0RF ergocalciferol (vitamin D2) [Vitamin D2] 1,250 mcg (50,000 unit) Capsule 1,250 mcg PO Q7D Qty: 7 0RF acetaminophen [Tylenol] 325 mg Tablet 1,000 mg PO Q8H PRN (Reason: Fever, pain 1-10/10) Qty: 0 0RF Continued cod liver oil Oil 5 ml PO DAILY PreserVision AREDS 7,160 unit- 113 mg-100 unit Tablet 1 tab PO BID Rx Instructions: administer with AM and PM meals Other Ambulatory Orders: Physical Therapy Evaluation (Routine) Location: None Selected Ordered By: Dr. Eloy Ryan Referrals / Follow Up: Brenda Doshi MD [Primary Care Provider] - Within 1 Week Pavel Cote DO [STAFF PHYSICIAN] - 10/07/21 Disposition Disposition (needs filled in before D/C Order can be placed): Home, Self Care
--- NOTE | 2021-09-22 17:40 | DS.PCM_ITS ---
Providers Date of Admission: 09/20/21 Primary Care Physician: Dr. Brenda Doshi MD Consultations 09/21/21 00:56 Consult: Orthopedics Routine Consulting Provider: Pavel Cote Reason for Consult: Fall, R hip fracture EMERGENT Consult: No MD Notified: Yes Date Notified: 09/21/21 Time Notified: 00:48 Method of Notification: ED Physician Initiated Reason For Visit: FALL, R HIP FRACTURE Diagnosis Discharge Diagnosis (1) Closed basicervical fracture of neck of right femur: Status: Acute Code(s): S72.041A - Displaced fracture of base of neck of right femur, initial encounter for closed fracture Plan The patient is an 80 y/o M w/ PMHx: HTN, history of 05/10/21 discharge following evaluation and treatment for L hip fracture at that time who now re-presents to the [facility] ED on 09/20/21 secondary to unfortunate mechanical fall while attempting to move a cable in his driveway directly onto his right hip currently rating his pain 0 out of 10 unless he moves or laughs which then causes right hip pain which is sharp at approximately 3 to 4-10 in severity. 1. right hip pain s/p mechanical fall w/ right femoral neck fracture: Plain film noting right femoral neck fracture. 2 OR today CM consulted for discharge planning. Per NSQIP patient is average to below average risk for perioperative event with hip fracture as noted, EKG requested and will be obtained while patient is in the ED, chest x-ray reviewed and agree with progression to OR as long as no acute or concerning findings on EKG. 25-hydroxy vitamin D level of 19.4. Start ergocalciferol 50,000 units weekly for 8 weeks. s/p right cemented hip hemiarthroplasty on 09/21 per ortho: WBAT.posterior hip precautions. VTE prophylaxis with ASA 81 BID 2. Hypertension: Given hypertension we will resume amlodipine with hold parameters as needed, PRN hydralazine. 3. DVT prophylaxis: SCDs, defer chemoprophylaxis for planned OR. 4. Anxiety Patient very anxious which is complicating his overall care. Despite reass urance that medication be provided he keeps perseverating on his last admission and being knocked out. I did discuss concern that I would have for underlying mild cognitive impairment or even dementia. This may be making his anxiety potentially worse. Patient may benefit from serial geriatrics to be formally evaluated for MCI or dementia. states that he had issues with his anesthesia last time but that she qualify that is saying that had up and about 3 weeks later after the surgery. I told her I was not concerned that that was related with his anesthesia but she stated that his sister had a similar event. Nonetheless, I feel it was unrelated to his anesthesia. Overall improved. I am still concerned patient may have some underlying dementia. Consider geriatric evaluation for dementia. CODE status: Patient does not have healthcare power of anesthesiologist assistant nor living will in place. Discussed CODE status at length including difference between FULL code, DNR-CCA and DNR-CC status. Following discussions about the differences in these status, requested DNR-CCA, no intubation status he notes specifically because of his advanced age and preference to avoid aggressive interventions. Disposition is to home. Is concerned about impulsivity but according to documentation by case management, they can manage at home with outpatient therapy. Medications at Discharge Home Medications cod liver oil 5 ml PO DAILY supplement 09/21/21 vitamins A,C,B-zgfw-vhcbrk 7,160 unit-113 mg-100 unit tablet (PreserVision AREDS) 1 tab PO BID eye health 09/21/21 acetaminophen 325 mg tablet (Tylenol) 1,000 mg PO Q8H PRN Fever, pain 1-1010 #0 tabs 09/22/21 amlodipine 5 mg tablet 5 mg PO DAILY #30 tabs 09/22/21 aspirin 81 mg tablet,delayed release 81 mg PO BID #60 tabs 09/22/21 ergocalciferol (vitamin D2) 1,250 mcg (50,000 unit) capsule (Vitamin D2) 1,250 mcg PO Q7D #7 caps 09/22/21 oxycodone 5 mg tablet 5 mg PO Q6H PRN pain (scale score 7-10) 3 days #12 tabs 09/22/21 Hospital Course Summary of Care Provided Minutes Spent on Discharge: 35 Weight / BMI Weight Weight: 80.4 kg Body Mass Index (BMI) 24.7 ABG / Lab / Microbiology Data Result Diagrams: 09/22/21 06:23 09/22/21 06:23 Laboratory: Laboratory Results - last 24 hr 09/22/21 06:23: WBC 13.0 H, RBC 4.65, Hgb 13.8, Hct 41.8, MCV 89.9, MCH 29.7, MCHC 33.0, RDW Std Deviation 47.4 H, RDW Coeff of Ana 14.5, Plt Count 188, MPV 10.5 09/22/21 06:23: Sodium 138, Potassium 4.0, Chloride 105, Carbon Dioxide 26.0, Anion Gap 7, BUN 13, Creatinine 0.93, Estim Creat Clear Calc 67.47, Est GFR (MDRD) Af Amer 100, Est GFR (MDRD) Non-Af 83, BUN/Creatinine Ratio 14.0, Glucose 137 H, Calcium 8.9 D/C Instructions Discharge Diet: No restrictions Weight Bearing Status: Weight bearing as tolerated Keep extremity elevated above heart level: Right Leg Call your doctor if your incision/area has: Continuous Slow Oozing, Sudden Increased Bleeding, Increased Pain/ Swelling, Increased Redness, Foul Smelling Discharge and Swelling at the incision site Meaningful Use Info Meaningful Use Diagnoses (Choose all that apply): None applicable Discharge Plan Admission Admit Date/Time: 09/20/21 23:48 Primary Reason for Your Visit: right hip fracture Attending Provider: Eloy Ryan Primary Care Provider: Brenda Doshi Consulting Providers: Fiona Hercules ; Pavel Cote Instructions Additional Instructions / Restrictions: Right hip: Maintain surgical dressing until 09/28/2021 then okay to remove and leave open to air if no drainage. If drainage, apply dry sterile dressing daily. Okay to shower with dressing on postoperative day #3. Posterior hip precautions right hip-no hip flexion greater than 90 degrees, no internal rotation, no crossing legs. Weightbearing as tolerated right lower extremity. Continue aspirin 81 mg twice daily for DVT prophylaxis 28 days postoperatively. Discharge Orders/Prescriptions Prescriptions: New aspirin 81 mg Tablet,Delayed Release (Dr/Ec) 81 mg PO BID Qty: 60 0RF amlodipine 5 mg Tablet 5 mg PO DAILY Qty: 30 0RF oxycodone 5 mg Tablet 5 mg PO Q6H PRN (Reason: pain (scale score 7-10)) 3 Days Qty: 12 0RF ergocalciferol (vitamin D2) [Vitamin D2] 1,250 mcg (50,000 unit) Capsule 1,250 mcg PO Q7D Qty: 7 0RF acetaminophen [Tylenol] 325 mg Tablet 1,000 mg PO Q8H PRN (Reason: Fever, pain 1-12/28) Qty: 0 0RF Continued cod liver oil Oil 5 ml PO DAILY PreserVision AREDS 7,160 unit- 113 mg-100 unit Tablet 1 tab PO BID Rx Instructions: administer with AM and PM meals Other Ambulatory Orders: Physical Therapy Evaluation (Routine) Location: None Selected Ordered By: Dr. Eloy Ryan Referrals / Follow Up: Brenda Doshi MD [Primary Care Provider] - Within 1 Week Pavel Cote DO [STAFF PHYSICIAN] - 10/07/21 Disposition Disposition (needs filled in before D/C Order can be placed): Home, Self Care Charges/Coding Visit Charges Inpatient E&M: 25666 Disch Hosp
[2021-09-22 19:03] VITALS: BP 134/64; PULSE 69; RESP 18; TEMP 36.7; O2SAT 97
--- NOTE | 2021-09-23 13:01 | CASEMGMT ---
CHANTAL JESUS NOTE: Pt discharged home yesterday w/ w/plans for pt to go to [facility] for OP therapy per pt/ request. CHANTAL JESUS placed call to pt's at this time. She states she has already scheduled an appt for pt to be seen @ [facility] for Tuesday09/28/21 @ 2:30 PM. She was made aware script for OP therapy will be faxed to them today. states pt is doing well and she denies having any concerns or other needs at this time. Script obtained from Dr Ryan and faxed to [facility] at this time. Call placed to [facility] and they were notified of same. Mojgan BRIGGS RN, CM
== END 2021-09-22 19:02 | disposition home or self-care (01) | DRG 522 ==
LOC: ED 23:53 → MS3 09-21 00:09
PROVIDERS: Student in an Organized Health Care Education/Training Program; Admitting Provider Family Medicine; Emergency Provider Emergency Medicine; PCP Family Medicine
PROC: 0SRR0J9 Replacement of Right Hip Joint, Femoral Surface with Synthetic Substitute, Cemented, Open Approach (ICD-10-PCS; CPT 27125; principal; 2021-09-21 11:00)
DX: S72.041A Displaced fracture of base of neck of right femur, initial encounter for closed fracture (principal); F41.9 Anxiety disorder, unspecified; I10 Essential (primary) hypertension; W19.XXXA Unspecified fall, initial encounter; R53.81 Other malaise; Z96.642 Presence of left artificial hip joint
CPT/HCPCS: 36415; 71045; 73502; 80048; 80053; 82306; 85025; 85027; 86850; 86900; 86901; 88305; 88311; 93005; 97162; 97166; 99251; 99285; C1776; J7030; J7120; A4216; G0463; J2405

== ENCOUNTER 2021-11-29 22:56 | Emergency (ER) | payer MEDICARE, SELFPAY ==
[2021-11-29 22:58] VITALS: BP 156/91; PULSE 88; RESP 14; TEMP 36.9; O2SAT 98; BMI 24.5
[2021-11-30 00:13] LABS: Absolute Lymphocyte Count 1.05 X10^3/uL (0.83-4.51); Anion Gap 7 (5-15); BUN 20 mg/dL (7-18); Basophil# 0.05 X10^3/uL; Basophil% 0.5 % (0-1); Calcium,Total 9.7 mg/dL (8.5-10.1); Chloride 106 mmol/L (98-107); Creatinine, Serum 1.11 mg/dL (0.70-1.30); EST Glomerular Filtration Rate 68 mL/min (>60); Eosinophil# 0.13 X10^3/uL; Eosinophils% 1.3 % (0-5); Est Glom Filt Rate - Afr Amer 82 mL/min (>60); Estimated Creatinine Clearance 55.59 ml/min; Glucose 139 mg/dL (74-106); Hematocrit 42.8 % (40-54); Hemoglobin 14.1 g/dL (13.0-16.5); Lymphocyte # 1.05 X10^3/ul (0.83-4.51); Lymphocyte % 10.3 % (19-41); Mean Corp Hgb Conc 32.9 g/dL (32-36); Mean Corpuscular Hgb 29.6 pg (27.0-32.0); Mean Corpuscular Volume 89.7 fL (80-94); Mean Platelet Vol. 10.4 fl (6.2-12.0); Monocyte# 0.97 X10^3/uL; Monocyte% 9.5 % (0-10); NRBC Flagged by Analyzer 0 % (0-5); Neutrophil # 7.97 X10^3/uL (2.7-7.7); Neutrophil % 77.7 % (47-70); Platelet Count 210 K/mm3 (150-450); Potassium 4.3 mmol/L (3.5-5.1); RBC Distribution Width CV 13.9 % (11.6-14.6); RBC Distribution Width SD 45.2 fl (35.1-43.9); Red Blood Count 4.77 M/mm3 (4.6-6.2); Sodium Level 139 mmol/L (136-145); White Blood Count 10.2 K/mm3 (4.4-11.0)
[2021-11-30 00:29] LABS: Lactic Acid 1.8 mmol/L (0.4-1.9)
--- NOTE | 2021-11-30 01:35 | EDS_ITS ---
HPI History of Present Illness Chief Complaint: Complaint Narrative Narrative: Patient is an 81-year-old male with past medical history of hypertension and left inguinal hernia. He states that he developed a inguinal hernia multiple years ago and never had surgery to correct it. He states [place] and felt like there was a sudden increase in pain and then noticed that the hernia appeared larger in size. He denies any dysuria fevers chills nausea or vomiting or injury. He states he was concerned about the enlargement of the hernia and secondary to this comes in for evaluation [facility] Medical History (Updated 11/30/21 @ 04:[address] Sami Cordero DO) Hernia HTN (hypertension) Home Medications cod liver oil 5 ml PO DAILY supplement 09/21/21 [History Last Taken Unknown] vitamins A,C,Y-pidd-xgyndt 2,148 mcg-113 mg-45 mg-17.4 mg tablet (PreserVision AREDS) 1 tab PO BID eye health 09/21/21 [History Last Taken Unknown] ergocalciferol (vitamin D2) 1,250 mcg (50,000 unit) capsule (Vitamin D2) 1,250 mcg PO Q7D #7 caps 09/22/21 [Rx Last Taken Unknown] aspirin 81 mg tablet,delayed release 162 mg PO DAILY 11/29/21 [History Last Taken Unknown] Allergy/AdvReac Type Severity Reaction Status Date / Time No Known Allergies Allergy Verified 11/29/21 22:57 Family History (Updated 09/21/21 @ 00:[address] Fiona Hercules MD) Father Myocardial infarction Heart disease Hypertension Mother Non-alcoholic cirrhosis Social History (Updated 09/20/21 @ 23:[address] Fiona Hercules MD) household members: spouse Smoking Status: Never smoker alcohol intake: current alcohol intake frequency: a few times a week Alcohol type: beer substance use type: does not use ROS ROS ED Constitutional Constitutional ED: Denies chills or fever(s) ENT ENT ED: Denies sore throat Cardiovascular Cardiovascular: Denies chest pain Respiratory/Chest Respiratory/Chest: Denies cough or dyspnea Gastrointestinal Gastrointestinal: Reports abdominal pain; Denies diarrhea, nausea or vomiting Genitourinary Genitourinary ED: Denies dysuria Musculoskeletal Musculoskeletal: Denies back pain or myalgias Integumentary Denies rash Neurologic Neurologic: Denies headache(s) Hematologic/Lymphatic Hematologic/Lymphatic: Denies easy bleeding or easy bruising EXAM Physical Exam Const Vital Signs: 11/29/21 22:58 11/30/21 01:41 11/30/21 01:41 Temperature 98.4 F Temperature Source Temporal Pulse Rate 88 80 78 Respiratory Rate 14 16 16 Blood Pressure 156/91 H 148/80 H 148/80 H Blood Pressure Mean 112 102 Pulse Ox 98 97 97 Oxygen Delivery Method Room Air Room Air Positive well nourished and well developed General Appearance ED: well developed Eyes PERRL and EOMs intact bilaterally Neck supple Resp normal respiratory effort and clear to auscultation bilaterally Cardio regular rate and regular rhythm Rate: other Other Details: Radial pulses are plus 2 out of 4 bilaterally are equal and symmetric GI non-distended GI Narrative: Patient has a large left inguinal hernia that extends down into the left side scrotum. There is mild pain on palpation at the site but no voluntary guarding. No overlying soft tissue changes to suggest infection. The hernia feels reducible in nature. No pulsatile mass or fluid wave Auscultation: normoactive bowel sounds Palpation: soft Narrative: Large left inguinal hernia as documented above. No soft tissue changes to suggest Rhona's gangrene Extremity normal to inspection Neuro oriented x3 and CN's II-XII intact bilaterally Sensorium / Orientation: alert Psych mental status grossly normal Skin no rashes or lesions noted MDM MDM MDM Narrative Medical decision making narrative: Patient presented to the ER hypertensive but has a history of this and otherwise stable vitals. Hernia is large in nature but it feels reducible and he does not have obvious findings to suggest bowel obstruction secondary to this. In order to ensure there is no signs of obstruction or incarceration a CT scan and basic labs were obtained. Labs revealed no clinically significant findings and CT scan does not display the large hernia but without signs of infection perforation or obstruction. Therefore patient is safe for discharge and he can follow-up with a specialist as an outpatient to discuss need for surgery to correct this. Lab Data Attestation: I reviewed the patient's lab results. Labs: Laboratory Results - last 24 hr 11/29/21 11/29/21 11/29/21 23:40 23:40 23:40 WBC 10.2 RBC 4.77 Hgb 14.1 Hct 42.8 MCV 89.7 MCH 29.6 MCHC 32.9 RDW Std Deviation 45.2 H RDW Coeff of Ana 13.9 Plt Count 210 MPV 10.4 Immature Gran % (Auto) 0.700 Neut % (Auto) 77.7 H Lymph % (Auto) 10.3 L [place] % (Auto) 9.5 Eos % (Auto) 1.3 Baso % (Auto) 0.5 Absolute Neuts (auto) 8.0 H Absolute Lymphs (auto) 1.05 Nucleated RBC % 0 Sodium 139 Potassium 4.3 Chloride 106 Carbon Dioxide 26.0 Anion Gap 7 BUN 20 H Creatinine 1.11 Estim Creat Clear Calc 55.59 Est GFR (MDRD) Af Amer 82 Est GFR (MDRD) Non-Af 68 BUN/Creatinine Ratio 18.0 Glucose 139 H Lactic Acid 1.8 Calcium 9.7 Radiography Diagnostic Testing: Clinical Impression(s) from Imaging Studies Abdomen/Pelvis CT 11/30/21 23:25 IMPRESSION: 1. Large left inguinal hernia containing the sigmoid colon without evidence of proximal obstruction. 2. Prominent small bowel loops with air-fluid levels, can be seen in the setting of rapid transit or enteritis. 3. Mild increased stool. 4. Mild urinary bladder wall thickening, may be due to decompression or cystitis. 5. Complex intramuscular fluid collection in the right hip measuring 8 cm, may represent intramuscular hematoma, postsurgical seroma or bursitis. Electronically Signed: Raza Mayes MD at 0:55 EDT , Discharge Plan Triage Chief Complaint: Complaint ED Provider: Sami Cordero Dx/Rx/DC Orders Clinical Impression: Left inguinal hernia, History of hypertension Instructions: What Is a Hernia?, ED Hernia (Adult) Prescriptions: No Action cod liver oil Oil 5 ml PO DAILY PreserVision AREDS 7,160 unit- 113 mg-100 unit Tablet 1 tab PO BID Rx Instructions: administer with AM and PM meals ergocalciferol (vitamin D2) [Vitamin D2] 1,250 mcg (50,000 unit) Capsule 1,250 mcg PO Q7D Qty: 7 0RF aspirin 81 mg tablet,delayed release (DR/EC) 162 mg PO DAILY Primary Care Provider: Brenda Doshi Referrals: Brenda Doshi MD [Primary Care Provider] - Activity Restrictions/Additional Instructions: You have a large left inguinal hernia with your sigmoid colon extending through it. Based on the large nature of the hernia you will most likely need to see a specialist in order to have it surgically fixed. If you develop a fever over 100.4 or severe pain or noticed changes to the skin please return to the ER for repeat evaluation Disposition Disposition: Home, Self Care Discharge Date/Time: 11/30/21 01:43
[2021-11-30 01:41] VITALS: BP 148/80; PULSE 78; PULSE 80; RESP 16; O2SAT 97
--- NOTE | 2021-11-30 23:25 | CT_ITS ---
STUDY: CT ABDOMEN AND PELVIS WITH CONTRAST REASON FOR EXAM: Male, 81 years old. Left inguinal hernia RADIATION DOSAGE (If Supplied By Facility): CTDIvol = ( 14.23 ) mGy, DLP = ( 1413.33 ) mGycm TECHNIQUE: Transaxial images were obtained from the dome of the diaphragm to the symphysis pubis without oral contrast. IV 100mL Isovue-370 was administered. Sagittal and coronal images were reconstructed. Individualized dose optimization techniques were used for this CT. COMPARISON: None. FINDINGS: LOWER CHEST: Increased peripheral reticulations in the lung bases. Coronary artery calcifications and aortic valvular calcifications. LIVER: Normal. GALLBLADDER/BILE DUCTS: Normal. PANCREAS: Normal. SPLEEN: Calcifications in the spleen, likely sequela of prior granulomatous disease.. ADRENAL GLANDS: Normal. KIDNEYS/URETERS/BLADDER: Cystic changes in the right kidney, too small to characterize. No hydroureteronephrosis or radiographic nephrolithiasis. Urinary bladder is decompressed, limiting evaluation. Mild urinary bladder wall thickening. RETROPERITONEUM/AORTA: Mild atherosclerotic calcifications. BOWEL/MESENTERY: Prominent small bowel loops with air-fluid levels. Large left inguinal hernia containing sigmoid colon without evidence of proximal obstruction. Mild increased stool. No bowel wall thickening.. APPENDIX: Identified and normal. PERITONEUM: Normal. REPRODUCTIVE ORGANS: Normal. BONES/SOFT TISSUES: Intramuscular complex fluid collection within the right hip measuring 8 x 3.5 cm. Status post bilateral hip arthroplasty with streak artifact, limiting evaluation. No acute osseous abnormality. OTHER: None. CT/Abdomen/Pelvis W IV Cont ONLY IMPRESSION: 1. Large left inguinal hernia containing the sigmoid colon without evidence of proximal obstruction. 2. Prominent small bowel loops with air-fluid levels, can be seen in the setting of rapid transit or enteritis. 3. Mild increased stool. 4. Mild urinary bladder wall thickening, may be due to decompression or cystitis. 5. Complex intramuscular fluid collection in the right hip measuring 8 cm, may represent intramuscular hematoma, postsurgical seroma or bursitis. Electronically Signed: Raza Mayes MD at 0:55 EDT ,
== END 2021-11-30 01:43 | disposition home or self-care (01) ==
PROVIDERS: Emergency Provider Emergency Medicine; PCP Family Medicine; Visit Provider Emergency Medicine
DX: K40.90 Unilateral inguinal hernia, without obstruction or gangrene, not specified as recurrent (principal); I10 Essential (primary) hypertension; Z79.82 Long term (current) use of aspirin
CPT/HCPCS: 74177; 80048; 83605; 85025; 96360; 96361; 99282; J7030; Q9967; A4216

== ENCOUNTER 2021-12-17 05:55 | Day surgery (SDC) | payer MEDICARE, SELFPAY ==
[2021-12-17 06:36] VITALS: BP 151/89; PULSE 65; RESP 16; TEMP 36.5; O2SAT 99; BMI 23.0
[2021-12-17] MEDS: Lactated Ringers 1,000 ML 15 ML IV (06:42)
--- NOTE | 2021-12-17 07:18 | PCM.HP.BLA ---
History and Physical Date of Admission: 12/17/21 Date of Service:? 12/09/21 MR#: [id number] Acct: [id number] Name:TANNA OSWALD Rep #: [id number] : 1940 ? ? Provider: Dr. Susanne Rodríguez MD Age/Sex:? 81/M ? ? Location: [facility] [address] Status: Signed Intake Vital Signs ? 11/29/2221:58 12/09/2213:18 Height 5 ft 11 in 6 ft Weight: 176 lb 172 lb 4 oz BMI 24.5 23.3 BP 156/91 H 158/93 H Blood Pressure Location ? Rt popliteal Position ? Sitting Respiration 14 16 Pulse 88 78 Pulse Source ? Monitor Temp 98.4 F 97.5 F L Temp Source Temporal Temporal Pulse Oximetry (%) 98 100 Oxygen Delivery Method ? 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 Susanne Rodríguez MD) H/O fracture of left hip H/O fracture of right hip Hernia HTN (hypertension) Family History?(Updated 12/09/21 @ 14:17 by Sheryl Vargas) Father Myocardial infarction Heart disease HypertensionMother Non-alcoholic cirrhosis Colon cancer Social History? household members:? spouse Smoking Status:? Never smoker alcohol intake:? current alcohol intake frequency: a few times a week Alcohol type: beer substance use type:? does not use HPI HPI HPI: 81-year-old male presents due to left inguinal hernia.? Patient states he has had this hernia for a while did see Dr. Daniel about it sometime in the past but does not want it fixed as he mentioned they were using mesh.? [place] and had increased pain in this region and felt like the hernia was larger.? Patient does not reduce it on his own unsure the last time it was reduced or exactly how large it was prior to when he said it has increased at the fair.? Patient went to the ER had CT abdomen pelvis did show that sigmoid colon was in the hernia no signs of any obstruction and patient had no pain after being in the ER for a little bit.? Patient denies any pain since the ER does has a large bulge. ROS General General: Yes weight change; No appetite, fatigue, colon cancer, breast cancer or weakness HEENT HEENT: Yes eye surgery; No difficulty swallowing, eye injury, swollen glands or hoarseness Endo Endocrine: No thyroid disease, diabetes mellitus, thyroid cancer, Hair loss, heat intolerance or cold intolerance Skin Skin: No rash or changing moles Breast Breast: No left breast lump, right breast lump, nipple discharge, breast pain, abnormal mammogram, abnormal US or breast enlargement Musc Musculoskeletal: No back problems, arthritis, rheumatoid arthritis, gout or joint pain Cardio Cardiovascular: No murmur, pacemaker, heart disease, atrial fibrillation, high blood pressure, heart attack, heart stent, palpitations, shortness of breat with exertion or chest pain Psych Psychiatric: No depression, anxiety or hearing voices Resp Respiratory: No shortness of breath, No sleep apnea, No cough, No COPD, No asthma, No emphysema and No wheezing Gastro Gastrointestinal: No abdominal pain, No nausea or vomiting, No diarrhea, No constipation, No blood in stool, No acid reflux, No hemorrhoids, No ulcers, No gallbladder problem and No black,tarry stools Dinh Hematologic: No blood thinners, No blood disorders, No bleeding, No anemia and No blood clots Neuro Neurologic: No system reviewed and no additional complaints, except as documented, No as per HPI, No abnormal gait, No abnormal hearing, No abnormal movements, No abnormal speech, No behavioral changes, No burning sensations, No confusion, No convulsions, No disequilibrium, No dizziness, No localized weakness, No frequent falls, No headache(s), No lack of coordination, No loss of vision, No memory loss, No numbness, No other visual disturbances, No radicular pain, No restless legs, No sensory deficit, No syncope, No tingling, No tremor(s), No weakness and No other Exam Const General: cooperative, healthy appearing and no acute distress [facility] Head: normal to inspection Resp Effort & Inspection: normal respiratory effort Cardio Rate: regular rate GI Inspection: non-distended Palpation: soft, no guarding, no hernias and nontender Other: Large left inguinal hernia and stents extending to the scrotum unable to reduce on exam, right side no hernia on exam. Skin General: no rashes or lesions noted Neuro General: patient oriented x3 Extrem General: no clubbing, cyanosis or edema Psych Affect: normal affect Assessment and Plan Assessment and Plan (1) Incarcerated left inguinal hernia: ?Status:?Acute Plan Unable to reduce hernia in office.? CT abdomen pelvis did show there was some sigmoid colon and the hernia reviewed with the patient and personally..? Patient denies any pain or issues with bowel movements.? Did discuss with patient that I would be using mesh which patient was agreeable with any and no further concerns at this time. Plan to do a left inguinal herniorrhaphy with mesh. Reviewed the procedure with the patient including the risks, including but not limited to infection, bleeding, paresthesia, chronic back pain, injury to small bowel/colon or contents of the spermatic cord, and recurrence. All questions were answered. Susanne Rodríguez M.D. Pager: [phone] [facility] [address] [place] [address], [address] [place] [address] Office: [phone] Coding Level of Care Code Off vis,new,level 4 Diagnoses Incarcerated left inguinal hernia? K40.30 12/10/21 1014 <Electronically signed by Susanne Rodríguez MD> Date Susanne Rodríguez MD
[2021-12-17] MEDS: Cefazolin 2 GM in 0.9% Normal Saline 100 ML IV (07:20)
--- NOTE | 2021-12-17 09:34 | PCM.OPRPT ---
Problems Associated Problem List Diagnoses (1) S/P left inguinal hernia repair: Report of Operation Date of Procedure: 12/17/21 Pre-Operative Diagnosis: Incarcerated large left inguinal hernia containing sigmoid colon Post-Operative Diagnosis: Same Surgery/Procedure Performed:: Open left inguinal hernia repair with mesh Surgeon: Susanne Rodríguez youth services specialist: Sil Bennett Type of Anesthesia: General/Supplemental Anesthesiologist: Jun Lawrence Special Medications: Ancef 2 g IV x1 Specimen's removed: None Drains: 7 Malay LENI in the left scrotum Estimated Blood Loss (mL): <10 cc Description of Procedure: Indications: This is a 81-year-old male who developed large left incarcerated inguinal hernia containing sigmoid colon. Left inguinal hernia repair with mesh was elected. Description procedure: The patient was taken to the operating room. A timeout was completed verifying correct patient, procedure, site, positioning, and special equipment prior to beginning procedure. General anesthesia was induced. The left groin was prepped and draped in usual sterile fashion. An incision was marked in the natural skin crease and planned in the near the pubic tubercle. A field block was produced by raising skin wheals along the proposed incision in a skin wound was raised about 1 cm medial to the anterior superior iliac spine using 0.25% Marcaine for a total of 10 mL. Skin incision was made with the knife and deepened through the Remedios and Camper's fascia with electrocautery until the aponeurosis of the external oblique was a identified. This was cleaned and the external ring exposed. Hemostasis was achieved in the wound. An incision was made in the midpoint of the external oblique aponeurosis in the direction of its fibers. The ilioinguinal nerve was identified and protected throughout the dissection. Flaps of the external oblique were developed cephalad and inferiorly. Hernia sac was identified and colon was able to be reduced back into the abdomen after gently finger dissection of the sac from surround tissue as it was quite stuck in scrotum and not easily reducible. Next the the cord was identified. It was gently dissected free at the pubic tubercle and encircled with a Meet drain. Attention was directed to the anterior medial aspect of the cord where an indirect hernia sac was identified. The sac was carefully dissected free from the cord down to the level of the internal ring. The vas on the testicular vessels were identified and protected from harm. A finger was passed into the peritoneal cavity and the floor of the inguinal canal was assessed and found to be grossly weakened. The femoral canal was palpated and no hernia identified. The sac was twisted and suture ligated with a 0 silk. The stump of the sac was checked for hemostasis and allowed to retract into the abdomen. Attention then turned to the floor of the canal which appeared to be grossly weakened. A Bard keyhole mesh was cut to the appropriate size and a large plug was placed and secured with 3-0 silk suture. Beginning at the pubic tubercle, the mesh was sutured to the inguinal ligament inferiorly and the conjoined tendon superiorly using 2-0 Prolene interrupted sutures. Care was taken to assure the mesh was placed in the last fashion to avoid excess tension and no neurovascular structures were caught in the repair. Laterally the tails of mesh were crossed and the internal ring recreated, allowing for passage of the surgeon's 5th fingertip. Hemostasis was again checked. The [place] drain was removed. Area was irrigated with saline. External oblique aponeurosis was closed running suture of 3-0 Vicryl, taking care not to catch the ilioinguinal nerve in the suture line. Due to the previous large hernia 7 Malay LENI drain was placed in the left scrotal area. This was sutured with a 3-0 nylon. Remedios's fascia was closed with interrupted sutures of 3-0 Vicryl. Skin was closed running subcuticular suture of 4-0 Monocryl with Steri-Strips gauze and Tegaderm. The testes was gently pulled down to the anatomical position the scrotum. Patient tolerated the procedure well and sent to the postanesthesia care in stable condition. Grafts/Implants Used: Bard mesh plug ref [id number] lot [id number]; Bard mesh preshaped lot [id number] Complications none
--- NOTE | 2021-12-17 09:41 | DCINST_ITS ---
Discharge Instructions Procedure Hernia Diet Discharge Diet: Light diet - advance as tolerated Activity Discharge Activity: Return to Normal Activity, May Not Drive (for 2-3 days or while taking narcotic pain meds.) and May Shower (with the bandage in place 1-2 days after surgery.) Lifting Restrictions: 20 pounds for 8 weeks. Additional Activity Instructions:: Climbing stairs is fine, walking is encou raged. Sitting in bed may be uncomfortable. Sitting up using your lateral muscles (sitting up sideways) is usually more comfortable. Do not drive, work heavy equipment of sign legal documents for 24 hours. If your hernia repair was an ingunial repair, you may have scrotal swelling, an ice pack and/or athletic support can provide more comfort. Pain medications may cause nausea, you should typically eat light foods as you take your pain medications. Pain medications may also cause constipation. If you have difficulty with this, discuss with your doctor. Dressing / Incision Call your doctor if your incision/area has: Continuous Slow Oozing, Sudden Increased Bleeding, Increased Pain/ Swelling, Increased Redness and Foul Smelling Discharge Call your doctor if you observe: Fever of 101 or Higher Suture Line Care: Avoid Pulling/Pushing and Avoid Pinching/Bending Change Dressing in: 3 days (Leave steri-strips in place for 1 week. May protect with a guaze bandaid.) Additional Dressing/Incision Instructions:: Leave the operative bandage on for 2-3 days. When you remove the bandage, leave the steri-strips on place until your follow up appointment or they fall off. Track the LENI output on a log and bring to office appointment Follow Up Care Please Follow Up With: Susanne Rodríguez MD When: Please call [phone] for a follow up appointment in 5-6 days. Test Results: Test results from this visit will be discussed in further detail at your follow- up appointment, if applicable. Discharge Plan Admission Attending Provider: Susanne Rodríguez Primary Care Provider: Brenda Doshi Discharge Orders/Prescriptions Prescriptions: New hydrocodone-acetaminophen 5-325 mg tablet 1 tab PO Q6H PRN (Reason: pain) 3 Days Qty: 10 0RF Continued cod liver oil Oil 5 ml PO DAILY PreserVision AREDS 7,160 unit- 113 mg-100 unit Tablet 1 tab PO BID Rx Instructions: administer with AM and PM meals ergocalciferol (vitamin D2) [Vitamin D2] 1,250 mcg (50,000 unit) Capsule 1,250 mcg PO Q7D Qty: 7 0RF Held aspirin 81 mg tablet,delayed release (DR/EC) 162 mg PO DAILY Hold Instructions: Resume on 12/22/21. Referrals / Follow Up: Brenda Doshi MD [Primary Care Provider] - Disposition Disposition (needs filled in before D/C Order can be placed): Home, Self Care
[2021-12-17 09:56] VITALS: BP 151/89; BP 184/95; PULSE 66; RESP 18; TEMP 36.9; O2SAT 96
[2021-12-17 10:00] VITALS: BP 151/89; BP 162/91; PULSE 67; RESP 18; O2SAT 96
[2021-12-17 10:15] VITALS: BP 131/86; BP 151/89; PULSE 61; RESP 16; O2SAT 99
[2021-12-17 10:30] VITALS: BP 151/89; BP 154/84; PULSE 61; RESP 16; TEMP 36.4; O2SAT 98
[2021-12-17 12:11] VITALS: BP 127/71; BP 151/89; PULSE 50; RESP 16; TEMP 36.2; O2SAT 100
== END 2021-12-17 12:19 | disposition home or self-care (01) ==
LOC: SDC 05:56 → AC 05:58
PROVIDERS: PCP Family Medicine; Referring Provider Surgery; Visit Provider Surgery
PROC: (CPT 49507; principal; 2021-12-17 07:15)
DX: K40.30 Unilateral inguinal hernia, with obstruction, without gangrene, not specified as recurrent (principal); I10 Essential (primary) hypertension; Z79.82 Long term (current) use of aspirin
CPT/HCPCS: 49507; 00830; J7120; C1781; J2405

== ENCOUNTER → 2022-11-26 | Outpatient (CLI) | payer MEDICARE, SELFPAY ==
[2022-11-26 17:34] LABS: Absolute Lymphocyte Count 1.68 X10^3/uL (0.83-4.51); Absolute Neutrophil Count 4.8 X10^3/uL (2.0-7.7); Basophil# 0.07 X10^3/uL; Basophil% 0.9 % (0-1); Eosinophil# 0.33 X10^3/uL; Eosinophils% 4.2 % (0-5); Hematocrit 49.7 % (40-54); Hemoglobin 16.6 g/dL (13.0-16.5); Lymphocyte # 1.68 X10^3/ul (0.83-4.51); Lymphocyte % 21.3 % (19-41); Mean Corp Hgb Conc 33.4 g/dL (32-36); Mean Corpuscular Hgb 30.1 pg (27.0-32.0); Mean Corpuscular Volume 90.2 fL (80-94); Mean Platelet Vol. 10.6 fl (6.2-12.0); Monocyte% 12.7 % (0-10); NRBC Flagged by Analyzer 0 % (0-5); Neutrophil # 4.77 X10^3/uL (2.7-7.7); Neutrophil % 60.6 % (47-70); Platelet Count 224 K/mm3 (150-450); RBC Distribution Width CV 12.8 % (11.6-14.6); RBC Distribution Width SD 42.5 fl (35.1-43.9); Red Blood Count 5.51 M/mm3 (4.6-6.2); White Blood Count 7.9 K/mm3 (4.4-11.0)
[2022-11-26 18:19] LABS: ALB/GLOB Ratio 0.9 RATIO (0.9-2.4); AST(SGOT) 20 U/L (15-37); Alanine Aminotransfer ALT/SGPT 23 U/L (16-61); Albumin, Serum 3.6 g/dL (3.2-5.0); Alkaline Phosphatase 62 U/L (45-117); Anion Gap 7 (5-15); BUN 17 mg/dL (7-18); BUN/Creat Ratio 16.2 RATIO (10-20); Calcium,Total 9.1 mg/dL (8.5-10.1); Chloride 109 mmol/L (98-107); Creatinine, Serum 1.05 mg/dL (0.70-1.30); EST Glomerular Filtration Rate 72 mL/min (>60); Est Glom Filt Rate - Afr Amer 87 mL/min (>60); Globulin 4.1 g/dL (2.2-4.2); Glucose 116 mg/dL (74-106); Potassium 4.4 mmol/L (3.5-5.1); Protein, Total 7.7 g/dL (6.4-8.2); Sodium Level 138 mmol/L (136-145); Thyroid Stim Hormone (TSH) 2.99 uIU/mL (0.358-3.74)
== END | disposition home or self-care (01) ==
LOC: MFPLAB 16:07
PROVIDERS: PCP Family Medicine; Visit Provider Family Medicine
DX: F03.90 Unspecified dementia, unspecified severity, without behavioral disturbance, psychotic disturbance, mood disturbance, and anxiety (principal)
CPT/HCPCS: 36415; 80053; 84443; 85025

== ENCOUNTER → 2023-11-29 | Outpatient (CLI) | payer MEDICARE, SELFPAY ==
[2023-11-29 17:46] LABS: Protein, Urine (Random) 25.1 mg/dL (<11.9); Protein:Creat Ratio 171 mg/g CRE (0-200)
[2023-11-29 18:07] LABS: Anion Gap 6 (5-15); BUN 16 mg/dL (7-18); BUN/Creat Ratio 15.5 RATIO (10-20); Calcium,Total 9.5 mg/dL (8.5-10.1); Chloride 107 mmol/L (98-107); Cholesterol 264 mg/dL (200); Creatinine, Serum 1.03 mg/dL (0.70-1.30); EST Glomerular Filtration Rate 73 mL/min (>60); Est Glom Filt Rate - Afr Amer 89 mL/min (>60); Glucose 144 mg/dL (74-106); High Density Lipoprotein 45 mg/dL; Potassium 3.9 mmol/L (3.5-5.1); Sodium Level 138 mmol/L (136-145); Triglycerides 252 mg/dL; Very Low Density Lipoprotein 50 mg/dL (5-40)
== END | disposition home or self-care (01) ==
PROVIDERS: PCP Family Medicine; Visit Provider Family Medicine
DX: I10 Essential (primary) hypertension (principal)
CPT/HCPCS: 36415; 80048; 80061; 82570; 84156

== ENCOUNTER → 2024-12-07 | Outpatient (CLI) | payer MEDICARE, SELFPAY ==
[2024-12-07 10:54] LABS: Hematocrit 46.5 % (40-54); Hemoglobin 15.9 g/dL (13.0-16.5); Mean Corp Hgb Conc 34.2 g/dL (32-36); Mean Corpuscular Volume 88.7 fL (80-94); Mean Platelet Vol. 10.6 fl (6.2-12.0); Platelet Count 218 K/mm3 (150-450); RBC Distribution Width CV 13.2 % (11.6-14.6); RBC Distribution Width SD 43.0 fl (35.1-43.9); Red Blood Count 5.24 M/mm3 (4.6-6.2); White Blood Count 12.8 K/mm3 (4.4-11.0)
[2024-12-07 12:30] LABS: AST(SGOT) 20 U/L (<=37); Alanine Aminotransfer ALT/SGPT 14 U/L (<=46); Albumin, Serum 4.1 g/dL (3.4-4.8); Alkaline Phosphatase 68 U/L (40-129); Anion Gap 14 (5-15); BUN 12 mg/dL (4-19); BUN/Creat Ratio 11.5 RATIO (10-20); Calcium,Total 9.9 mg/dL (7.6-11.0); Carbon Dioxide 21.1 mmol/L (21.0-32.0); Chloride 103 mmol/L (98-108); Cholesterol 252 mg/dL (<=200); Globulin 3.5 g/dL (2.2-4.2); Glucose 129 mg/dL (70-99); Low Density Lipoprotein Calc. 153 mg/dL; Potassium 4.3 mmol/L (3.3-5.1); Triglycerides 255 mg/dL; Very Low Density Lipoprotein 51 mg/dL (5-40); Vitamin B12 560 pg/mL (180-914); cholesterol:hdl ratio screen 5.29
== END | disposition home or self-care (01) ==
LOC: MTLAB 09:23
PROVIDERS: PCP Family Medicine; Referring Provider Family Medicine; Visit Provider Family Medicine
DX: R79.89 Other specified abnormal findings of blood chemistry (principal); F03.90 Unspecified dementia, unspecified severity, without behavioral disturbance, psychotic disturbance, mood disturbance, and anxiety; E78.00 Pure hypercholesterolemia, unspecified; Z11.59 Encounter for screening for other viral diseases
CPT/HCPCS: 36415; 80053; 80061; 82607; 84439; 84443; 85027; 85652